=== PATIENT | female | born 1980 | race Caucasian/White ===

== ENCOUNTER 2020-02-14 11:30 | Inpatient (IN) | payer OTHER ==
--- NOTE | 2020-02-14 12:17 | BHS.RME ---
Substance Use & Tx History - Substance Use History Heroin Substance amount: 1 bundle Frequency of use: Daily Substance route: Inhalation (ex: sniffing or snorting) Date of Last Use: 02/13/20 Cocaine- Powder Substance amount: 1 gram Frequency of use: Daily Substance route: Inhalation (ex: sniffing or snorting) Date of Last Use: 02/13/20 Marijuana/Hashish Substance amount: 1 blunt Frequency of use: Daily Substance route: Smoking Date of Last Use: 02/13/20 Nicotine Substance amount: 5 ciggs Frequency of use: Daily Substance route: Smoking Date of Last Use: 02/14/20 Methadone Substance amount: street Frequency of use: Less than 3 times per week Substance route: Oral Date of Last Use: 02/13/20 - Last Treatment Date of last treatment: 2015 Treatment type: Substance Use Disorder (CHRISTIANNE) Where was last treatment: Detox COWS - Scale Resting Pulse: 0= [place] 80 or Below Sweatin=Flushed/Facial Moisture Restless Observation: 1= Difficult to Sit Still Pupil Size: 0= Normal to Room Light Bone or Joint Aches: 0= None Runny Nose/ Eye Tearin= Runny Nose/Eyes GI Upset > 30mins: 2= Nausea/Diarrhea Tremor Observation: 1= Tremor [place], Not Seen Yawning Observation: 1= 1-2x During Session Anxiety or Irritability: 2=Irritable/Anxious Goose Flesh Skin: 3=Piloerection COWS Score: 14
--- NOTE | 2020-02-14 12:28 | HP ---
COWS - Scale Resting Pulse: 0= [place] 80 or Below Sweatin=Flushed/Facial Moisture Restless Observation: 1= Difficult to Sit Still Pupil Size: 0= Normal to Room Light Bone or Joint Aches: 0= None Runny Nose/ Eye Tearin= Runny Nose/Eyes GI Upset > 30mins: 2= Nausea/Diarrhea Tremor Observation: 1= Tremor [place], Not Seen Yawning Observation: 1= 1-2x During Session Anxiety or Irritability: 2=Irritable/Anxious Goose Flesh Skin: 3=Piloerection COWS Score: 14 CIWA Score - Admission Criteria [facility]ASAS Guidelines: Admission for Medically Managed Detox: Requires at least one of the followin. CIWA greater than 12 2. Seizures within the past 24 hours 3. Delirium tremens within the past 24 hours 4. Hallucinations within the past 24 hours 5. Acute intervention needed for co occurring medical disorder 6. Acute intervention needed for co occurring psychiatric disorder 7. Severe withdrawal that cannot be handled at a lower level of care (continued vomiting, continued diarrhea, abnormal vital signs) requiring intravenous medication and/or fluids 8. Admitting History and Physical - Admission Chief Complaint: Heroin Detox History of Present Illness: CC: Heroin Detox HPI: Summer Rowland is a 39 year old woman with PMH of asthma and polysubstance abuse (heroin, methadone, cocaine, marijuana, nicotine) who presents for detox. She is a poor historian but states that she began taking prescription pain killers in 2015, was in detox at [facility] for 5 days in November 2015, but relapsed soon after. By 2017 she had progressed to heroin use. In 2018 she was admitted to detox for heroin use in [place], but relapsed in July 2019, and 'has been getting high every day since'. She was hospitalized September 2019 with asthma attack. - Substance Use History Heroin Substance amount: 1 bundle Frequency of use: Daily Substance route: Inhalation (ex: sniffing or snorting) Date of Last Use: 02/13/20 Cocaine- Powder Substance amount: 1 gram Frequency of use: Daily Substance route: Inhalation (ex: sniffing or snorting) Date of Last Use: 02/13/20 Marijuana/Hashish Substance amount: 1 blunt Frequency of use: Daily Substance route: Smoking Date of Last Use: 02/13/20 Nicotine Substance amount: 5 ciggs Frequency of use: Daily Substance route: Smoking Date of Last Use: 02/14/20 Methadone Substance amount: street Frequency of use: Less than 3 times per week Substance route: Oral Date of Last Use: 02/13/20 - Last Treatment Date of last treatment: 2015 Treatment type: Substance Use Disorder (CHRISTIANNE) Where was last treatment: Detox PMH: Asthma, anemia PSH: Gastric bypass 2013 Psych: Depression, anxiety Social: Lives in the [place] Legal: None History Source: Patient Limitations to Obtaining History: No Limitations - Past Medical History ...LMP: 12/07/15 - Smoking History Smoking history: Current every day smoker Have you smoked in the past 12 months: Yes Aproximately how many cigarettes per day: 5 - Alcohol/Substance Use Hx Alcohol Use: No Admission ROS S - HPI Chief Complaint: Heroin Detox Allergies/Adverse Reactions: Allergies Allergy/AdvReac Type Severity Reaction Status Date / Time No Known Allergies Allergy Verified 02/14/20 12:43 Exam Limitations: No Limitations - Ebola screening Have you traveled outside of the country in the last 21 days: No Have you had contact with anyone from an Ebola affected area: No Have you been sick,other than usual withdrawal symptoms: No Do you have a fever: No - Review of Systems Constitutional: No Symptoms Reported EENT: reports: Nose Congestion. denies: Eye Pain, Ear Pain Respiratory: denies: Cough, Shortness of Breath Cardiac: denies: Chest Pain GI: reports: Nausea. denies: Constipated, Diarrhea, Vomiting : reports: No Symptoms Reported Musculoskeletal: reports: No Symptoms Reported Integumentary: reports: No Symptoms Reported Neuro: denies: Headache Endocrine: reports: No Symptoms Reported Hematology: reports: Anemia. denies: Blood Clots Psychiatric: reports: Orientated x3 Patient History - Patient Medical History Hx Anemia: No Hx Asthma: Yes Hx Chronic Obstructive Pulmonary Disease (COPD): No Hx Cancer: No Hx Cardiac Disorders: No Hx Congestive Heart Failure: No Hx Hypertension: No Hx Hypercholesterolemia: No Hx Pacemaker: No HX Cerebrovascular Accident: No Hx Seizures: No Hx Dementia: No Hx Diabetes: No Hx Gastrointestinal Disorders: No Hx Liver Disease: No Hx Genitourinary Disorders: No Hx Sexually Transmitted Disorders: No Hx Renal Disease (ESRD): No Hx Thyroid Disease: No Hx Human Immunodeficiency Virus (HIV): No Hx Hepatitis C: No Hx Depression: No Hx Suicide Attempt: No Hx Bipolar Disorder: No Hx Schizophrenia: No - Patient Surgical History Past Surgical History: Yes Hx Abdominal Surgery: Yes (Gastric bypass 03/21/14) Anesthesia Reaction: No - PPD History Date: 12/13/15 - Reproductive History Last Menstrual Period: 12/07/15 - Smoking Cessation Smoking history: Current every day smoker Have you smoked in the past 12 months: Yes Aproximately how many cigarettes per day: 10 Hx Chewing Tobacco Use: No Initiated information on smoking cessation: Yes 'Breaking Loose' booklet given: 02/14/20 Admission Physical Exam [facility] - Physical General Appearance: Yes: Within Normal Limits HEENTM: Yes: Within Normal Limits, Hearing grossly Normal, Normocephalic, Normal Voice, ALIS Respiratory: Yes: Within Normal Limits, Lungs Clear, Wheezing. No: No Respiratory Distress, No Accessory Muscle Use Neck: Yes: Within Normal Limits Breast: Yes: Breast Exam Deferred Cardiology: Yes: Regular Rhythm, Regular Rate, S1, S2 Abdominal: Yes: Within Normal Limits, Normal Bowel Sounds, Non Tender, Flat, Soft Genitourinary: Yes: Within Normal Limits Back: Yes: Within Normal Limits, Normal Inspection Musculoskeletal: Yes: Within Normal Limits, full range of Motion, Gait Steady Extremities: Yes: Within Normal Limits, Other (ecchymoses on right knee from reported fall down the stairs last week) Neurological: Yes: Within Normal Limits, Fully Oriented, Alert, Motor Strength 5/5, Normal Mood/Affect Integumentary: Yes: Within Normal Limits, Normal Color, Dry, Warm - Diagnostic (1) Cocaine use Current Visit: Yes Status: Chronic (2) Nicotine dependence Current Visit: Yes Status: Acute Qualifiers: Nicotine product type: cigarettes (3) Asthma Current Visit: No Status: Chronic Qualifiers: Asthma severity: mild intermittent Asthma complication type: uncomplicated Qualified Code(s): J45.20 - Mild intermittent asthma, uncomplicated (4) Cannabis dependence, uncomplicated Current Visit: Yes Status: Acute (5) Opioid dependence with withdrawal Current Visit: Yes Status: Acute Cleared for Admission [facility] - Detox or Rehab [facility] Level of Care: Medically Managed Screened but not Admitted - Documentation of Visit Screened but not Admitted: No Inpatient Rehab Admission - Rehab Decision to Admit Inpatient rehab admission?: No
[2020-02-14 13:01] VITALS: BMI 25.9
[2020-02-14] MEDS ORDERED: MAGNESIUM CITRATE 300 ML BOTTLE PO PRN (13:19)
[2020-02-14] MEDS ORDERED: METHOCARBAMOL 500 MG TABLET PO PRN (13:19)
[2020-02-14] MEDS ORDERED: MENTHOL/PHENOL 1 EACH UD MM PRN (13:19)
[2020-02-14] MEDS ORDERED: BISMUTH SUBSALICYLATE 524 MG/30 ML UD PO PRN (13:19)
[2020-02-14] MEDS ORDERED: MAG HYDROX/AL HYDROX/SIMETH 30 ML UNIT-DOSE CUP PO PRN (13:19)
[2020-02-14] MEDS ORDERED: ACETAMINOPHEN 325 MG TABLET (FP) PO PRN (13:19)
[2020-02-14] MEDS ORDERED: NICOTINE POLACRILEX 2 MG GUM BUC PRN (13:19)
[2020-02-14] MEDS ORDERED: MAGNESIUM HYDROX 2400MG/30ML ORAL SUSPENSION 30 ML CUP PO PRN (13:19)
[2020-02-14] MEDS ORDERED: ALBUTEROL SO4 HFA INHALER IH PRN (13:22)
[2020-02-14] MEDS ORDERED: ONDANSETRON *ODT* 4 MG TABLET SL ONE (13:45)
[2020-02-14] MEDS ORDERED: hydrOXYzine PAMOATE 25 MG CAPSULE (FP) PO SCH (14:00)
[2020-02-14] MEDS ORDERED: METHADONE HCL 10 MG TABLET (FOR DETOX USE ONLY) PO ONE (14:00)
[2020-02-14] MEDS: NICOTINE 14 MG/24 HOURS TOPICAL PATCH TD SCH (14:02)
--- NOTE | 2020-02-14 14:34 | EKG ---
Test Reason : Blood Pressure : / mmHG Vent. Rate : 051 BPM Atrial Rate : 051 BPM P-R Int : 152 ms QRS Dur : 100 ms QT Int : 476 ms P-R-T Axes : 078 063 032 degrees QTc Int : 438 ms SINUS BRADYCARDIA OTHERWISE NORMAL ECG NO PREVIOUS ECGS AVAILABLE Confirmed by Rohan Espinoza MD ([id number]) on 02/14/2020 2:33:48 PM Referred By: Confirmed By:Rohan Espinoza MD
[2020-02-14 17:18] LABS: HEMATOCRIT 27.5 % (32.4-45.2); MCHC 28.9 g/dl (32.0-36.0); MEAN CELL VOLUME 59.1 fl (80-96); MEAN PLT VOLUME 8.5 fl (7.5-11.1); PLATELET COUNT 338 K/MM3 (134-434); RBC 4.66 M/mm3 (3.60-5.2); RDW 20.6 % (11.6-15.6)
[2020-02-14 17:19] LABS: MCH 17.1 pg (25.7-33.7)
[2020-02-14 17:27] LABS: ALBUMIN 3.4 g/dl (3.4-5.0); BILIRUBIN,TOTAL 0.3 mg/dL (0.2-1); BLOOD UREA NITROGEN 19.8 mg/dL (7-18); CALCIUM 8.6 mg/dL (8.5-10.1); CREATININE 0.8 mg/dL (0.55-1.3); POTASSIUM 4.7 mmol/L (3.5-5.1); TOT PROT 7.6 g/dl (6.4-8.2)
[2020-02-14] MEDS: MELATONIN 5 MG TABLETS PO SCH (22:04)
[2020-02-14] MEDS: THIAMINE HCL 100 MG TABLET (FP) PO SCH (22:04)
[2020-02-14] MEDS: cloNIDine HCL 0.1 MG TABLET PO PRN (22:04)
[2020-02-14] MEDS: IBUPROFEN 400 MG TABLET (FP) PO PRN (22:06)
[2020-02-15] MEDS ORDERED: METHADONE HCL 5 MG TABLET (FOR DETOX USE ONLY) ONE (08:54)
[2020-02-15] MEDS ORDERED: METHADONE HCL 10 MG TABLET (FOR DETOX USE ONLY) ONE (08:55)
[2020-02-15] MEDS ORDERED: METHADONE (DETOX) 20 MG, METHADONE (DETOX) 5 MG PO ONE (10:00)
[2020-02-15] MEDS: PRENATAL VITAMINS W/ FOLIC ACID TABLET (FP) PO SCH (10:20)
[2020-02-15] MEDS: NICOTINE 14 MG/24 HOURS TOPICAL PATCH TD SCH (10:20)
--- NOTE | 2020-02-15 10:32 | PN ---
BHS COWS - Scale Resting Pulse: 0= [place] 80 or Below Sweatin=Flushed/Facial Moisture Restless Observation: 1= Difficult to Sit Still Pupil Size: 0= Normal to Room Light Bone or Joint Aches: 2= Severe Diffuse Aches Runny Nose/ Eye Tearin= Runny Nose/Eyes GI Upset > 30mins: 0= None Tremor Observation of Outstretched Hands: 1= Tremor [place], Not Seen Yawning Observation: 1= 1-2x During Session Anxiety or Irritability: 2=Irritable/Anxious Goose Flesh Skin: 0=Smooth Skin COWS Score: 11 S Progress Note (SOAP) Subjective: sweats shakes restless body aches interrupted sleep agitation Objective: 02/15/20 10:31 Vital Signs Temperature 97.8 F 02/15/20 05:56 Pulse Rate 60 02/15/20 05:56 Respiratory Rate 18 02/15/20 05:56 Blood Pressure 123/65 02/15/20 05:56 O2 Sat by Pulse Oximetry (%) 96 02/15/20 05:56 Laboratory Tests 02/14/20 02/14/20 02/14/20 13:05 13:05 13:05 WBC RBC Hgb Hct MCV MCH MCHC RDW Plt Count MPV Sodium 138 Potassium 4.7 Chloride 104 Carbon Dioxide 27 Anion Gap 7 L BUN 19.8 H Creatinine 0.8 Est GFR (CKD-EPI)AfAm 107.64 Est GFR (CKD-EPI)NonAf 92.87 Random Glucose 72 L Calcium 8.6 Total Bilirubin 0.3 AST 18 ALT 15 Alkaline Phosphatase 80 Total Protein 7.6 Albumin 3.4 Syphilis Serology Non-reactive HIV Ag/Ab Combo Qual Negative 02/14/20 13:20 WBC 5.0 RBC 4.66 Hgb 8.0 L Hct 27.5 L D MCV 59.1 L MCH 17.1 L D MCHC 28.9 L RDW 20.6 H Plt Count 338 MPV 8.5 Sodium Potassium Chloride Carbon Dioxide Anion Gap BUN Creatinine Est GFR (CKD-EPI)AfAm Est GFR (CKD-EPI)NonAf Random Glucose Calcium Total Bilirubin AST ALT Alkaline Phosphatase Total Protein Albumin Syphilis Serology HIV Ag/Ab Combo Qual labs noted aaox3 ambulating no acute distress low H:H; H/O of gastric bypass iron supplement ordered Assessment: 02/15/20 10:33 withdrawals Plan: continue detox iron supplement ordered increase fluids valium 10mg prn x 3 days ordered
--- NOTE | 2020-02-15 10:51 | PN ---
Teaching Attending Note Name of Resident: Katelyn Choi ATTENDING PHYSICIAN STATEMENT I saw and evaluated the patient. I reviewed the resident's note and discussed the case with the resident. I agree with the resident's findings and plan as documented. SUBJECTIVE: OBJECTIVE: ASSESSMENT AND PLAN: Agree with resident's plan for detox.
--- NOTE | 2020-02-15 11:36 | CONSULT ---
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 Refer to addiction counselor's summary for further information Medical History: Significant for anemia, bronchial asthma and gastric bypass for obesity in February 2014. Smokes 5 cigarettes daily Psychiatric History: Denies history of previous psychiatric treatment. However, reports feeling depressed, anxious and sleeping poorly Physical/Sexual Abuse/Trauma History: Denies history of abuse as child or DV relationship as an adult Mental Status Exam - Mental Status Exam Alert and Oriented to: Time, Place, Person Cognitive Function: Fair Patient Appearance: Well Groomed Mood: Depressed, Anxious Affect: Appropriate Patient Behavior: Cooperative Speech Pattern: Clear Voice Loudness: Normal Thought Process: Intact, Goal Oriented Thought Disorder: Not Present Hallucinations: Denies Suicidal Ideation: Denies Homicidal Ideation: Denies Insight/Judgement: Poor Sleep: Poorly Appetite: Good Muscle strength/Tone: Normal Gait/Station: Normal Psychiatric Findings - Problem List ([place] 1, 2,3) (1) Substance induced mood disorder Current Visit: Yes Status: Acute (2) Substance-induced sleep disorder Current Visit: Yes Status: Acute (3) Opioid dependence with withdrawal Current Visit: Yes Status: Acute (4) Cocaine dependence Current Visit: Yes Status: Acute (5) Cannabis dependence Current Visit: Yes Status: Acute (6) Nicotine dependence Current Visit: Yes Status: Chronic Qualifiers: Nicotine product type: cigarettes (7) Asthma Current Visit: No Status: Chronic Qualifiers: Asthma severity: mild intermittent Asthma complication type: uncomplicated (8) Anemia Current Visit: Yes Status: Chronic (9) Gastric bypass status for obesity Current Visit: Yes Status: Resolved - Initial Treatment Plan Initial Treatment Plan: 1) Start Belsomra 10 mg po HS prn for insomnia. 2) Continue inpatient detoxification
[2020-02-15] MEDS: FERROUS SO4 325 MG TABLET (FP) PO SCH ×2 (14:40→17:57)
[2020-02-15] MEDS: IBUPROFEN 400 MG TABLET (FP) PO PRN (14:51)
[2020-02-15] MEDS: cloNIDine HCL 0.1 MG TABLET PO PRN ×2 (17:57→22:03)
[2020-02-15] MEDS: SUVOREXANT 10 MG TABLET PO PRN (22:02)
[2020-02-15] MEDS: THIAMINE HCL 100 MG TABLET (FP) PO SCH (22:03)
[2020-02-15] MEDS: ACETAMINOPHEN 325 MG TABLET (FP) PO PRN (22:03)
[2020-02-15] MEDS: MELATONIN 5 MG TABLETS PO SCH (23:41)
[2020-02-16] MEDS: diazePAM 5 MG TABLET PO PRN ×4 (05:56→22:52)
[2020-02-16] MEDS: IBUPROFEN 400 MG TABLET (FP) PO PRN ×3 (05:56→22:52)
[2020-02-16] MEDS: FERROUS SO4 325 MG TABLET (FP) PO SCH ×3 (07:26→18:33)
[2020-02-16] MEDS ORDERED: METHADONE HCL 10 MG TABLET (FOR DETOX USE ONLY) PO ONE (10:00)
[2020-02-16] MEDS: PRENATAL VITAMINS W/ FOLIC ACID TABLET (FP) PO SCH (10:19)
[2020-02-16] MEDS: NICOTINE 14 MG/24 HOURS TOPICAL PATCH TD SCH (10:19)
--- NOTE | 2020-02-16 12:31 | PN ---
BHS COWS - Scale Resting Pulse: 0= [place] 80 or Below Sweatin= Chills/Flushing Restless Observation: 1= Difficult to Sit Still Pupil Size: 0= Normal to Room Light Bone or Joint Aches: 1= Mild Discomfort Runny Nose/ Eye Tearin= Nasal Congestion GI Upset > 30mins: 1= Stomach Cramp Tremor Observation of Outstretched Hands: 1= Tremor [place], Not Seen Yawning Observation: 1= 1-2x During Session Anxiety or Irritability: 1=Feels Anxious/Irritable Goose Flesh Skin: 0=Smooth Skin COWS Score: 8 BHS Progress Note (SOAP) Subjective: sweats restless body aches interrupted sleep agitation Objective: 02/16/20 12:34 Vital Signs Temperature 98.2 F 02/16/20 08:43 Pulse Rate 60 02/16/20 08:43 Respiratory Rate 19 02/16/20 08:43 Blood Pressure 106/65 02/16/20 08:43 O2 Sat by Pulse Oximetry (%) 97 02/16/20 05:45 Laboratory Tests 02/14/20 02/14/20 02/14/20 13:05 13:05 13:05 WBC RBC Hgb Hct MCV MCH MCHC RDW Plt Count MPV Sodium Potassium Chloride Carbon Dioxide Anion Gap BUN Creatinine Est GFR (CKD-EPI)AfAm Est GFR (CKD-EPI)NonAf Random Glucose Calcium Total Bilirubin AST ALT Alkaline Phosphatase Total Protein Albumin Syphilis Serology Non-reactive COVID-19 (CHARO) Not detected HIV Ag/Ab Combo Qual Negative 02/14/20 02/14/20 13:05 13:20 WBC 5.0 RBC 4.66 Hgb 8.0 L Hct 27.5 L D MCV 59.1 L MCH 17.1 L D MCHC 28.9 L RDW 20.6 H Plt Count 338 MPV 8.5 Sodium 138 Potassium 4.7 Chloride 104 Carbon Dioxide 27 Anion Gap 7 L BUN 19.8 H Creatinine 0.8 Est GFR (CKD-EPI)AfAm 107.64 Est GFR (CKD-EPI)NonAf 92.87 Random Glucose 72 L Calcium 8.6 Total Bilirubin 0.3 AST 18 ALT 15 Alkaline Phosphatase 80 Total Protein 7.6 Albumin 3.4 Syphilis Serology COVID-19 (CHARO) HIV Ag/Ab Combo Qual labs noted aaox3 cbc repeats irons supplement ordered no acute distress Assessment: 02/16/20 12:34 withdrawals Plan: continue detox increase fluids robaxin 750mg prn ordered
[2020-02-16] MEDS: METHOCARBAMOL 750 MG TABLET PO PRN (15:28)
[2020-02-16] MEDS: ACETAMINOPHEN 325 MG TABLET (FP) PO PRN (19:39)
[2020-02-16] MEDS: THIAMINE HCL 100 MG TABLET (FP) PO SCH (22:52)
[2020-02-16] MEDS: SUVOREXANT 10 MG TABLET PO PRN (22:52)
[2020-02-16] MEDS: MELATONIN 5 MG TABLETS PO SCH (22:55)
[2020-02-17] MEDS: METHOCARBAMOL 750 MG TABLET PO PRN ×2 (01:12→22:44)
[2020-02-17] MEDS: hydrOXYzine PAMOATE 25 MG CAPSULE (FP) PO PRN ×2 (01:12→15:10)
[2020-02-17] MEDS: diazePAM 5 MG TABLET PO PRN ×2 (04:40→18:03)
[2020-02-17] MEDS ORDERED: METHADONE HCL 5 MG TABLET (FOR DETOX USE ONLY) ONE (09:00)
[2020-02-17] MEDS ORDERED: METHADONE HCL 10 MG TABLET (FOR DETOX USE ONLY) ONE (09:00)
[2020-02-17] MEDS ORDERED: METHADONE (DETOX) 10 MG, METHADONE (DETOX) 5 MG PO ONE (10:00)
[2020-02-17 10:21] LABS: BASO % 0.6 % (0-2.0); EOS % 2.8 % (0-4.5); HEMATOCRIT 28.9 % (32.4-45.2); HEMOGLOBIN 8.6 GM/dL (10.7-15.3); LYMPH % 45.1 % (8-40); MCHC 29.9 g/dl (32.0-36.0); MEAN CELL VOLUME 59.3 fl (80-96); MEAN PLT VOLUME 8.6 fl (7.5-11.1); MONO % 8.3 % (3.8-10.2); NEUT % 43.2 % (42.8-82.8); PLATELET COUNT 386 K/MM3 (134-434); RBC 4.87 M/mm3 (3.60-5.2); RDW 20.6 % (11.6-15.6); WHITE BLOOD COUNT 4.8 K/mm3 (4.0-10.0)
[2020-02-17 10:23] LABS: MCH 17.7 pg (25.7-33.7)
--- NOTE | 2020-02-17 10:40 | PN ---
BHS COWS - Scale Resting Pulse: 1= [place] 81-100 Sweatin= No chills or Flushing Restless Observation: 1= Difficult to Sit Still Pupil Size: 1= Pupils >than Normal Bone or Joint Aches: 1= Mild Discomfort Runny Nose/ Eye Tearin= Nasal Congestion GI Upset > 30mins: 1= Stomach Cramp Tremor Observation of Outstretched Hands: 1= Tremor [place], Not Seen Yawning Observation: 1= 1-2x During Session Anxiety or Irritability: 1=Feels Anxious/Irritable Goose Flesh Skin: 0=Smooth Skin COWS Score: 9 BHS Progress Note (SOAP) Subjective: pt admitted for heroin detox, with h/o polysubstance use O: Vital Signs - 24 hr 02/16/20 02/16/20 02/16/20 13:08 17:17 21:14 Temperature 98.1 F 97.9 F 97.3 F L Pulse Rate 65 85 57 L Respiratory 16 18 18 Rate Blood Pressure 106/67 116/65 116/67 O2 Sat by Pulse 95 96 Oximetry (%) 02/17/20 02/17/20 05:00 08:44 Temperature 98 F 98.6 F Pulse Rate 61 67 Respiratory 18 20 Rate Blood Pressure 113/80 109/58 L O2 Sat by Pulse 98 Oximetry (%) Laboratory Tests 02/14/20 02/14/20 02/14/20 13:05 13:05 13:05 WBC RBC Hgb Hct MCV MCH MCHC RDW Plt Count MPV Absolute Neuts (auto) Neutrophils % Lymphocytes % Monocytes % Eosinophils % Basophils % Nucleated RBC % Sodium Potassium Chloride Carbon Dioxide Anion Gap BUN Creatinine Est GFR (CKD-EPI)AfAm Est GFR (CKD-EPI)NonAf Random Glucose Calcium Total Bilirubin AST ALT Alkaline Phosphatase Total Protein Albumin Syphilis Serology Non-reactive COVID-19 (CHARO) Not detected HIV Ag/Ab Combo Qual Negative 02/14/20 02/14/20 02/17/20 13:05 13:20 07:50 WBC 5.0 4.8 RBC 4.66 4.87 Hgb 8.0 L 8.6 L Hct 27.5 L D 28.9 L MCV 59.1 L 59.3 L MCH 17.1 L D 17.7 L MCHC 28.9 L 29.9 L RDW 20.6 H 20.6 H Plt Count 338 386 MPV 8.5 8.6 Absolute Neuts (auto) 2.1 Neutrophils % 43.2 Lymphocytes % 45.1 H Monocytes % 8.3 Eosinophils % 2.8 Basophils % 0.6 Nucleated RBC % 0 Sodium 138 Potassium 4.7 Chloride 104 Carbon Dioxide 27 Anion Gap 7 L BUN 19.8 H Creatinine 0.8 Est GFR (CKD-EPI)AfAm 107.64 Est GFR (CKD-EPI)NonAf 92.87 Random Glucose 72 L Calcium 8.6 Total Bilirubin 0.3 AST 18 ALT 15 Alkaline Phosphatase 80 Total Protein 7.6 Albumin 3.4 Syphilis Serology COVID-19 (CHARO) HIV Ag/Ab Combo Qual with anemia, low MCV- a/p Continue opioid detox anemia- low MCV- could be a hemoglobinopathy, on top of nutrient deficiencies- h/o gastric bypass pt started on iron- anemia- needs to f/u with PCP
[2020-02-17] MEDS: PRENATAL VITAMINS W/ FOLIC ACID TABLET (FP) PO SCH (10:46)
[2020-02-17] MEDS: NICOTINE 14 MG/24 HOURS TOPICAL PATCH TD SCH (10:46)
[2020-02-17] MEDS: FERROUS SO4 325 MG TABLET (FP) PO SCH ×3 (10:46→18:03)
[2020-02-17 13:26] LABS: ANISOCYTOSIS 2+; MACROCYTOSIS 0; PLATELET ESTIMATE NORMAL; ROULEAU 1+
[2020-02-17] MEDS: cloNIDine HCL 0.1 MG TABLET PO PRN (15:10)
[2020-02-17] MEDS: IBUPROFEN 400 MG TABLET (FP) PO PRN (18:04)
[2020-02-17] MEDS: SUVOREXANT 10 MG TABLET PO PRN (22:43)
[2020-02-17] MEDS: THIAMINE HCL 100 MG TABLET (FP) PO SCH (22:44)
[2020-02-17] MEDS: MELATONIN 5 MG TABLETS PO SCH (22:45)
[2020-02-18] MEDS: diazePAM 5 MG TABLET PO PRN (05:40)
[2020-02-18] MEDS: ACETAMINOPHEN 325 MG TABLET (FP) PO PRN (05:40)
[2020-02-18] MEDS: hydrOXYzine PAMOATE 25 MG CAPSULE (FP) PO PRN ×2 (05:41→14:15)
[2020-02-18] MEDS: FERROUS SO4 325 MG TABLET (FP) PO SCH ×3 (07:50→17:38)
[2020-02-18] MEDS: NICOTINE 14 MG/24 HOURS TOPICAL PATCH TD SCH (09:50)
[2020-02-18] MEDS: PRENATAL VITAMINS W/ FOLIC ACID TABLET (FP) PO SCH (09:52)
[2020-02-18] MEDS ORDERED: METHADONE HCL 10 MG TABLET (FOR DETOX USE ONLY) PO ONE (10:00)
--- NOTE | 2020-02-18 14:11 | PN ---
S CIWA - CIWA Score Nausea/Vomitin-No Nausea/No Vomiting Muscle Tremors: 2 Anxiety: 2 Agitation: 1-Slight > Activity Paroxysmal Sweats: No Perspiration Orientation: 0-Oriented Tacttile Disturbances: 0-None Auditory Disturbances: 0-None Visual Disturbances: 0-None Headache: 0-None Present CIWA-Ar Total Score: 5 BHS Progress Note (SOAP) Subjective: Complaints of mild tremors, anxiety and agitation Objective: 02/18/20 14:11 Vital Signs 02/18/20 09:04 Temperature 97.8 F Pulse Rate 80 Respiratory 20 Rate Blood Pressure 131/76 O2 Sat by Pulse 99 Oximetry (%) Laboratory Last Values WBC 4.8 K/mm3 (4.0-10.0) 02/17/20 07:50 RBC 4.87 M/mm3 (3.60-5.2) 02/17/20 07:50 Hgb 8.6 GM/dL (10.7-15.3) L 02/17/20 07:50 Hct 28.9 % (32.4-45.2) L 02/17/20 07:50 MCV 59.3 fl (80-96) L 02/17/20 07:50 MCH 17.7 pg (25.7-33.7) L 02/17/20 07:50 MCHC 29.9 g/dl (32.0-36.0) L 02/17/20 07:50 RDW 20.6 % (11.6-15.6) H 02/17/20 07:50 Plt Count 386 K/MM3 (134-434) 02/17/20 07:50 MPV 8.6 fl (7.5-11.1) 02/17/20 07:50 Absolute Neuts (auto) 2.1 K/mm3 (1.5-8.0) 02/17/20 07:50 Neutrophils % 43.2 % (42.8-82.8) 02/17/20 07:50 Lymphocytes % 45.1 % (8-40) H 02/17/20 07:50 Monocytes % 8.3 % (3.8-10.2) 02/17/20 07:50 Eosinophils % 2.8 % (0-4.5) 02/17/20 07:50 Basophils % 0.6 % (0-2.0) 02/17/20 07:50 Nucleated RBC % 0 % (0-0) 02/17/20 07:50 Hypochromia 2+ 02/17/20 07:50 Platelet Estimate Normal 02/17/20 07:50 Poikilocytosis 0 02/17/20 07:50 Anisocytosis 2+ 02/17/20 07:50 Microcytosis 1+ 02/17/20 07:50 Macrocytosis 0 02/17/20 07:50 Rouleaux 1+ 02/17/20 07:50 Sodium 138 mmol/L (136-145) 02/14/20 13:05 Potassium 4.7 mmol/L (3.5-5.1) 02/14/20 13:05 Chloride 104 mmol/L (98-107) 02/14/20 13:05 Carbon Dioxide 27 mmol/L (21-32) 02/14/20 13:05 Anion Gap 7 MMOL/L (8-16) L 02/14/20 13:05 BUN 19.8 mg/dL (7-18) H 02/14/20 13:05 Creatinine 0.8 mg/dL (0.55-1.3) 02/14/20 13:05 Est GFR (CKD-EPI)AfAm 107.64 02/14/20 13:05 Est GFR (CKD-EPI)NonAf 92.87 02/14/20 13:05 Random Glucose 72 mg/dL (74-106) L 02/14/20 13:05 Calcium 8.6 mg/dL (8.5-10.1) 02/14/20 13:05 Total Bilirubin 0.3 mg/dL (0.2-1) 02/14/20 13:05 AST 18 U/L (15-37) 02/14/20 13:05 ALT 15 U/L (13-61) 02/14/20 13:05 Alkaline Phosphatase 80 U/L (45-117) 02/14/20 13:05 Total Protein 7.6 g/dl (6.4-8.2) 02/14/20 13:05 Albumin 3.4 g/dl (3.4-5.0) 02/14/20 13:05 Syphilis Serology Non-reactive (NONREACTIVE) 02/14/20 13:05 COVID-19 (CHARO) Not detected (Not Detected) 02/14/20 13:05 HIV Ag/Ab Combo Qual Negative (NEGATIVE) 02/14/20 13:05 Labs noted. Assessment: 02/18/20 14:12 Alert and oriented x 3, in no acute respiratory distress. Full ROM, ambulating in the unit without assistance. Mild withdrawal symptoms. For discharge AM Plan: Continue detox protocol. Discharge in AM.
[2020-02-18] MEDS: IBUPROFEN 400 MG TABLET (FP) PO PRN (17:36)
[2020-02-18] MEDS: cloNIDine HCL 0.1 MG TABLET PO PRN (17:36)
[2020-02-18] MEDS: THIAMINE HCL 100 MG TABLET (FP) PO SCH (21:57)
[2020-02-18] MEDS: SUVOREXANT 10 MG TABLET PO PRN (21:57)
[2020-02-18] MEDS: MELATONIN 5 MG TABLETS PO SCH (21:58)
[2020-02-19] MEDS: hydrOXYzine PAMOATE 25 MG CAPSULE (FP) PO PRN (01:29)
[2020-02-19] MEDS: IBUPROFEN 400 MG TABLET (FP) PO PRN (01:29)
[2020-02-19] MEDS ORDERED: METHADONE HCL 5 MG TABLET (FOR DETOX USE ONLY) PO ONE (06:00)
[2020-02-19 06:32] VITALS: BP 135/65; PULSE 67; TEMP 97.9
[2020-02-19] MEDS: FERROUS SO4 325 MG TABLET (FP) PO SCH (08:14)
--- NOTE | 2020-02-19 10:28 | DS ---
[facility] Detox Discharge Summary Admission Date: 02/14/20 Discharge Date: 02/19/20 - History Present History: Cannabis Dependence, Cocaine Dependence, Opioid Dependence Additional Comments: Patient was seen and examined at bedside. Alert and oriented x 3, in no acute respiratory distress. Skin warm to touch. Full ROM, ambulatory without assistance. Detox protocol completed, stable for discharge today. Pertinent Past History: History of asthma, anemia, gastric bypass, heroin, nicotine, cocaine and cannabis use disorder. - Physical Exam Results Vital Signs: Vital Signs Temperature 97.9 F 02/19/20 05:43 Pulse Rate 67 02/19/20 05:43 Respiratory Rate 16 02/19/20 05:43 Blood Pressure 135/65 02/19/20 05:43 O2 Sat by Pulse Oximetry (%) 98 02/19/20 05:43 Vital Signs 02/19/20 05:43 Temperature 97.9 F Pulse Rate 67 Respiratory 16 Rate Blood Pressure 135/65 O2 Sat by Pulse 98 Oximetry (%) Laboratory Last Values WBC 4.8 K/mm3 (4.0-10.0) 02/17/20 07:50 RBC 4.87 M/mm3 (3.60-5.2) 02/17/20 07:50 Hgb 8.6 GM/dL (10.7-15.3) L 02/17/20 07:50 Hct 28.9 % (32.4-45.2) L 02/17/20 07:50 MCV 59.3 fl (80-96) L 02/17/20 07:50 MCH 17.7 pg (25.7-33.7) L 02/17/20 07:50 MCHC 29.9 g/dl (32.0-36.0) L 02/17/20 07:50 RDW 20.6 % (11.6-15.6) H 02/17/20 07:50 Plt Count 386 K/MM3 (134-434) 02/17/20 07:50 MPV 8.6 fl (7.5-11.1) 02/17/20 07:50 Absolute Neuts (auto) 2.1 K/mm3 (1.5-8.0) 02/17/20 07:50 Neutrophils % 43.2 % (42.8-82.8) 02/17/20 07:50 Lymphocytes % 45.1 % (8-40) H 02/17/20 07:50 Monocytes % 8.3 % (3.8-10.2) 02/17/20 07:50 Eosinophils % 2.8 % (0-4.5) 02/17/20 07:50 Basophils % 0.6 % (0-2.0) 02/17/20 07:50 Nucleated RBC % 0 % (0-0) 02/17/20 07:50 Hypochromia 2+ 02/17/20 07:50 Platelet Estimate Normal 02/17/20 07:50 Poikilocytosis 0 02/17/20 07:50 Anisocytosis 2+ 02/17/20 07:50 Microcytosis 1+ 02/17/20 07:50 Macrocytosis 0 02/17/20 07:50 Rouleaux 1+ 02/17/20 07:50 Sodium 138 mmol/L (136-145) 02/14/20 13:05 Potassium 4.7 mmol/L (3.5-5.1) 02/14/20 13:05 Chloride 104 mmol/L (98-107) 02/14/20 13:05 Carbon Dioxide 27 mmol/L (21-32) 02/14/20 13:05 Anion Gap 7 MMOL/L (8-16) L 02/14/20 13:05 BUN 19.8 mg/dL (7-18) H 02/14/20 13:05 Creatinine 0.8 mg/dL (0.55-1.3) 02/14/20 13:05 Est GFR (CKD-EPI)AfAm 107.64 02/14/20 13:05 Est GFR (CKD-EPI)NonAf 92.87 02/14/20 13:05 Random Glucose 72 mg/dL (74-106) L 02/14/20 13:05 Calcium 8.6 mg/dL (8.5-10.1) 02/14/20 13:05 Total Bilirubin 0.3 mg/dL (0.2-1) 02/14/20 13:05 AST 18 U/L (15-37) 02/14/20 13:05 ALT 15 U/L (13-61) 02/14/20 13:05 Alkaline Phosphatase 80 U/L (45-117) 02/14/20 13:05 Total Protein 7.6 g/dl (6.4-8.2) 02/14/20 13:05 Albumin 3.4 g/dl (3.4-5.0) 02/14/20 13:05 Syphilis Serology Non-reactive (NONREACTIVE) 02/14/20 13:05 COVID-19 (CHARO) Not detected (Not Detected) 02/14/20 13:05 HIV Ag/Ab Combo Qual Negative (NEGATIVE) 02/14/20 13:05 Labs noted. Pertinent Admission Physical Exam Findings: Withdrawal symptoms - Treatment Hospital Course: Detox Protocol Followed, Detoxed Safely, Responded well, Discharged Condition Good - Medication Discharge Medications: Ambulatory Orders Albuterol Sulfate Inhaler - [Ventolin Hfa Inhaler -] 2 inh PO Q4H PRN 12/11/15 - Diagnosis (1) Cannabis dependence Current Visit: Yes Status: Chronic (2) Cocaine dependence Current Visit: Yes Status: Chronic (3) Nicotine dependence Current Visit: Yes Status: Chronic Qualifiers: Nicotine product type: cigarettes (4) Gastric bypass status for obesity Current Visit: Yes Status: Resolved (5) Asthma Current Visit: No Status: Chronic Qualifiers: Asthma severity: mild intermittent Asthma complication type: uncomplicated (6) Opioid dependence with withdrawal Current Visit: Yes Status: Acute - AMA Did Patient Leave Against Medical Advice: No
== END 2020-02-19 09:11 | disposition home or self-care (01) | DRG 773 ==
LOC: YASAS 11:30 → Y6N 12:37
PROVIDERS: ADMIT Allergy & Immunology; ATTEND Allergy & Immunology
PROC: HZ2ZZZZ Detoxification Services for Substance Abuse Treatment (ICD-10-PCS; principal; 2020-02-14)
DX: F11.23 Opioid dependence with withdrawal (principal); F14.20 Cocaine dependence, uncomplicated; F12.20 Cannabis dependence, uncomplicated; F17.210 Nicotine dependence, cigarettes, uncomplicated; F19.282 Other psychoactive substance dependence with psychoactive substance-induced sleep disorder; F19.24 Other psychoactive substance dependence with psychoactive substance-induced mood disorder; D64.9 Anemia, unspecified; J45.20 Mild intermittent asthma, uncomplicated; Z98.84 Bariatric surgery status
CPT/HCPCS: 36415; 80053; 85025; 85027; 86780; 87389; 93005; 93010; J0735; U0003

== ENCOUNTER 2020-12-03 17:11 | Inpatient (IN) | payer OTHER ==
[2020-12-03 19:33] VITALS: BMI 29.0
[2020-12-03] MEDS ORDERED: BISMUTH SUBSALICYLATE 524 MG/30 ML PO PRN (20:25)
[2020-12-03] MEDS ORDERED: DICYCLOMINE HCL 10 MG CAPSULE PO PRN (20:25)
[2020-12-03] MEDS ORDERED: P-EPHED 60MG/TRIPROLIDI 2.5MG TABLET PO PRN (20:25)
[2020-12-03] MEDS ORDERED: MAG HYDROX/AL HYDROX/SIMETH 30 ML UNIT-DOSE CUP PO PRN (20:25)
[2020-12-03] MEDS ORDERED: NICOTINE POLACRILEX 2 MG GUM BUC PRN (20:25)
[2020-12-03] MEDS ORDERED: MAGNESIUM HYDROX 2400MG/30ML ORAL SUSPENSION 30 ML CUP PO PRN (20:25)
[2020-12-03] MEDS ORDERED: ONDANSETRON *ODT* 4 MG TABLET SL PRN (20:25)
[2020-12-03] MEDS ORDERED: ACETAMINOPHEN 325 MG TABLET (FP) PO PRN ×2 (20:25)
[2020-12-03] MEDS ORDERED: NALOXONE (NARCAN) HCL 4 MG/0.1 ML SPRAY NS PRN (20:25)
[2020-12-03] MEDS ORDERED: MENTHOL/PHENOL 1 EACH UD MM PRN (20:25)
[2020-12-03] MEDS ORDERED: guaiFENesin 200 MG/10 ML 10 ML UNIT-DOSE CUPS PO PRN (20:25)
[2020-12-03] MEDS ORDERED: MAGNESIUM CITRATE 300 ML BOTTLE PO PRN (20:25)
[2020-12-03] MEDS ORDERED: NALOXONE HCL 0.4 MG/ML VIAL IM PRN (20:25)
[2020-12-03] MEDS ORDERED: METHADONE HCL 10 MG TABLET (FOR DETOX USE ONLY) PO ONE ×2 (21:00→23:45)
[2020-12-03] MEDS ORDERED: ALBUTEROL SO4 0.083% IH SOL 2.5 MG/3 ML VIAL.NEB. NEB ONE (21:11)
[2020-12-03] MEDS: THIAMINE HCL 100 MG TABLET (FP) PO SCH (23:48)
[2020-12-03] MEDS: MELATONIN 5 MG TABLETS PO SCH (23:49)
[2020-12-03] MEDS: diazePAM 5 MG TABLET PO SCH (23:50)
[2020-12-04] MEDS: diazePAM 5 MG TABLET PO SCH ×4 (06:00→22:56)
[2020-12-04] MEDS: METHOCARBAMOL 500 MG TABLET PO PRN ×2 (06:00→20:30)
[2020-12-04] MEDS ORDERED: METHADONE HCL 5 MG TABLET (FOR DETOX USE ONLY) ONE (09:54)
[2020-12-04] MEDS ORDERED: METHADONE HCL 10 MG TABLET (FOR DETOX USE ONLY) ONE (09:54)
[2020-12-04] MEDS ORDERED: METHADONE (DETOX) 20 MG, METHADONE (DETOX) 5 MG PO ONE (10:00)
[2020-12-04] MEDS: PRENATAL VITAMINS W/ FOLIC ACID TABLET (FP) PO SCH (10:18)
[2020-12-04] MEDS: NICOTINE 21 MG/24 HOURS TOPICAL PATCH TD SCH (10:18)
[2020-12-04 11:30] LABS: HEMATOCRIT 25.9 % (32.4-45.2); HEMOGLOBIN 7.7 GM/dL (10.7-15.3); MCHC 29.7 g/dl (32.0-36.0); MEAN CELL VOLUME 59.6 fl (80-96); MEAN PLT VOLUME 8.3 fl (7.5-11.1); PLATELET COUNT 327 K/MM3 (134-434); RBC 4.34 M/mm3 (3.60-5.2); RDW 21.2 % (11.6-15.6); WHITE BLOOD COUNT 5.1 K/mm3 (4.0-10.0)
[2020-12-04 11:31] LABS: CALCIUM 8.7 mg/dL (8.5-10.1)
[2020-12-04 11:33] LABS: ALBUMIN 2.7 g/dl (3.4-5.0); BLOOD UREA NITROGEN 9.6 mg/dL (7-18)
[2020-12-04 11:35] LABS: CREATININE 0.6 mg/dL (0.55-1.3); MCH 17.7 pg (25.7-33.7)
[2020-12-04 11:36] LABS: BILIRUBIN,TOTAL 0.4 mg/dL (0.2-1); TOT PROT 6.1 g/dl (6.4-8.2)
[2020-12-04] MEDS ORDERED: FERROUS SO4 325 MG TABLET (FP) PO ONE (12:31)
[2020-12-04] MEDS: cloNIDine HCL 0.1 MG TABLET PO PRN (17:18)
[2020-12-04] MEDS: FERROUS SO4 325 MG TABLET (FP) PO SCH (17:18)
[2020-12-04] MEDS: diazePAM 5 MG TABLET PO PRN (20:30)
[2020-12-04] MEDS: MELATONIN 5 MG TABLETS PO SCH (22:56)
[2020-12-04] MEDS: THIAMINE HCL 100 MG TABLET (FP) PO SCH (22:56)
[2020-12-04] MEDS: IBUPROFEN 400 MG TABLET (FP) PO PRN (22:58)
[2020-12-05] MEDS: diazePAM 5 MG TABLET PO SCH ×3 (06:11→22:09)
[2020-12-05] MEDS: IBUPROFEN 400 MG TABLET (FP) PO PRN ×2 (06:12→13:22)
[2020-12-05] MEDS: METHOCARBAMOL 500 MG TABLET PO PRN ×2 (06:12→17:24)
[2020-12-05] MEDS: FERROUS SO4 325 MG TABLET (FP) PO SCH ×3 (08:05→17:22)
[2020-12-05] MEDS ORDERED: METHADONE HCL 10 MG TABLET (FOR DETOX USE ONLY) PO ONE (10:00)
[2020-12-05] MEDS: NICOTINE 21 MG/24 HOURS TOPICAL PATCH TD SCH (10:13)
[2020-12-05] MEDS: PRENATAL VITAMINS W/ FOLIC ACID TABLET (FP) PO SCH (10:13)
[2020-12-05] MEDS: ALBUTEROL SO4 HFA INHALER IH PRN (17:21)
[2020-12-05] MEDS: cloNIDine HCL 0.1 MG TABLET PO PRN (17:24)
[2020-12-05] MEDS: diazePAM 5 MG TABLET PO PRN (17:24)
[2020-12-05] MEDS: THIAMINE HCL 100 MG TABLET (FP) PO SCH (22:08)
[2020-12-05] MEDS: MELATONIN 5 MG TABLETS PO SCH (22:08)
[2020-12-06] MEDS: IBUPROFEN 400 MG TABLET (FP) PO PRN ×2 (00:50→20:38)
[2020-12-06] MEDS: METHOCARBAMOL 500 MG TABLET PO PRN ×4 (00:50→22:01)
[2020-12-06] MEDS: diazePAM 5 MG TABLET PO PRN (00:51)
[2020-12-06] MEDS: diazePAM 5 MG TABLET PO SCH ×2 (06:01→17:40)
[2020-12-06] MEDS: FERROUS SO4 325 MG TABLET (FP) PO SCH ×3 (07:46→17:39)
[2020-12-06] MEDS ORDERED: METHADONE HCL 5 MG TABLET (FOR DETOX USE ONLY) ONE (09:42)
[2020-12-06] MEDS ORDERED: METHADONE HCL 10 MG TABLET (FOR DETOX USE ONLY) ONE (09:42)
[2020-12-06 09:58] LABS: HEMATOCRIT 29.3 % (32.4-45.2); HEMOGLOBIN 8.9 GM/dL (10.7-15.3); MCHC 30.3 g/dl (32.0-36.0); MEAN CELL VOLUME 58.4 fl (80-96); MEAN PLT VOLUME 8.1 fl (7.5-11.1); PLATELET COUNT 366 K/MM3 (134-434); RBC 5.01 M/mm3 (3.60-5.2); RDW 21.4 % (11.6-15.6); WHITE BLOOD COUNT 5.3 K/mm3 (4.0-10.0)
[2020-12-06 10:00] LABS: MCH 17.7 pg (25.7-33.7)
[2020-12-06] MEDS ORDERED: METHADONE (DETOX) 10 MG, METHADONE (DETOX) 5 MG PO ONE (10:00)
[2020-12-06] MEDS: NICOTINE 21 MG/24 HOURS TOPICAL PATCH TD SCH (10:12)
[2020-12-06] MEDS: PRENATAL VITAMINS W/ FOLIC ACID TABLET (FP) PO SCH (10:12)
[2020-12-06] MEDS: ALBUTEROL SO4 HFA INHALER IH PRN (17:38)
[2020-12-06] MEDS: THIAMINE HCL 100 MG TABLET (FP) PO SCH (22:01)
[2020-12-06] MEDS: MELATONIN 5 MG TABLETS PO SCH (22:01)
[2020-12-07] MEDS ORDERED: diazePAM 5 MG TABLET PO ONE (06:00)
[2020-12-07] MEDS: IBUPROFEN 400 MG TABLET (FP) PO PRN (06:10)
[2020-12-07] MEDS: METHOCARBAMOL 500 MG TABLET PO PRN (06:10)
[2020-12-07] MEDS: FERROUS SO4 325 MG TABLET (FP) PO SCH (07:06)
[2020-12-07 09:05] VITALS: BP 98/58; PULSE 79; TEMP 96.4
[2020-12-07] MEDS: NICOTINE 21 MG/24 HOURS TOPICAL PATCH TD SCH (09:29)
[2020-12-07] MEDS: PRENATAL VITAMINS W/ FOLIC ACID TABLET (FP) PO SCH (09:29)
[2020-12-07] MEDS ORDERED: METHADONE HCL 10 MG TABLET (FOR DETOX USE ONLY) PO ONE (10:00)
[2020-12-08] MEDS ORDERED: METHADONE HCL 5 MG TABLET (FOR DETOX USE ONLY) PO ONE (06:00)
== END 2020-12-07 09:34 | disposition other institution (70) | DRG 773 ==
LOC: YASAS 17:11 → Y3N 20:38
PROVIDERS: ADMIT Allergy & Immunology; ATTEND Allergy & Immunology
PROC: HZ2ZZZZ Detoxification Services for Substance Abuse Treatment (ICD-10-PCS; principal; 2020-12-03)
DX: F11.23 Opioid dependence with withdrawal (principal); F10.20 Alcohol dependence, uncomplicated; F14.20 Cocaine dependence, uncomplicated; F12.20 Cannabis dependence, uncomplicated; F17.210 Nicotine dependence, cigarettes, uncomplicated; F19.280 Other psychoactive substance dependence with psychoactive substance-induced anxiety disorder; F19.24 Other psychoactive substance dependence with psychoactive substance-induced mood disorder; D64.9 Anemia, unspecified; J45.909 Unspecified asthma, uncomplicated; Z98.84 Bariatric surgery status
CPT/HCPCS: 36415; 80053; 81025; 85027; 86780; J0735; Q0162

== ENCOUNTER 2021-07-01 10:26 | Inpatient (IN) | payer OTHER ==
[2021-07-01] MEDS ORDERED: ACETAMINOPHEN 325 MG TABLET (FP) PO PRN (10:55)
[2021-07-01] MEDS ORDERED: MAG HYDROX/AL HYDROX/SIMETH 30 ML UNIT-DOSE CUP PO PRN (10:55)
[2021-07-01] MEDS ORDERED: NICOTINE 10 MG CARTRIDGE (INHALER) IH PRN (10:55)
[2021-07-01] MEDS ORDERED: MAGNESIUM HYDROX 2400MG/30ML ORAL SUSPENSION 30 ML CUP PO PRN (10:55)
[2021-07-01] MEDS ORDERED: MAGNESIUM CITRATE 300 ML BOTTLE PO PRN (10:55)
[2021-07-01] MEDS ORDERED: BISMUTH SUBSALICYLATE 524 MG/30 ML PO PRN (10:55)
[2021-07-01] MEDS ORDERED: chlordiazePOXIDE HCL 25 MG CAPSULE PO PRN (10:55)
[2021-07-01] MEDS ORDERED: ONDANSETRON *ODT* 4 MG TABLET SL PRN (10:55)
[2021-07-01 11:30] VITALS: BMI 33.9
[2021-07-01] MEDS ORDERED: ALBUTEROL SO4 HFA INHALER IH ONE (12:52)
[2021-07-01] MEDS ORDERED: ACETAMINOPHEN 325 MG TABLET (FP) ONE ×2 (12:55→12:56)
[2021-07-01] MEDS ORDERED: chlordiazePOXIDE HCL 25 MG CAPSULE ONE (12:55)
[2021-07-01] MEDS: ACETAMINOPHEN 325 MG TABLET (FP) PO PRN ×2 (13:00→23:25)
[2021-07-01] MEDS: ALBUTEROL SO4 HFA INHALER IH PRN (13:01)
[2021-07-01] MEDS: NICOTINE 14 MG/24 HOURS TOPICAL PATCH TD SCH (15:45)
[2021-07-01] MEDS: hydrOXYzine PAMOATE 25 MG CAPSULE (FP) PO SCH ×3 (15:45→23:26)
[2021-07-01] MEDS: PRENATAL VITAMINS W/ FOLIC ACID TABLET (FP) PO SCH (15:47)
[2021-07-01] MEDS: chlordiazePOXIDE HCL 25 MG CAPSULE PO SCH ×3 (15:54→23:25)
[2021-07-01] MEDS: IBUPROFEN 400 MG TABLET (FP) PO PRN (18:15)
[2021-07-01] MEDS: METHOCARBAMOL 500 MG TABLET PO PRN (18:16)
[2021-07-01] MEDS: AMOXICILLIN 500 MG CAPSULE (FP) PO SCH (23:24)
[2021-07-01] MEDS: MELATONIN 5 MG TABLETS PO SCH (23:25)
[2021-07-01] MEDS: THIAMINE HCL 100 MG TABLET (FP) PO SCH (23:25)
[2021-07-02] MEDS: ALBUTEROL SO4 HFA INHALER IH PRN ×5 (00:11→22:47)
[2021-07-02] MEDS: chlordiazePOXIDE HCL 25 MG CAPSULE PO SCH ×4 (06:51→22:48)
[2021-07-02] MEDS: hydrOXYzine PAMOATE 25 MG CAPSULE (FP) PO SCH ×5 (06:52→22:48)
[2021-07-02] MEDS: METHOCARBAMOL 500 MG TABLET PO PRN ×2 (06:53→23:03)
[2021-07-02] MEDS ORDERED: guaiFENesin/D-METHORPHAN HB 10 ML UNIT-DOSE CUPS PO PRN (09:30)
[2021-07-02] MEDS: AMOXICILLIN 500 MG CAPSULE (FP) PO SCH ×2 (10:59→22:48)
[2021-07-02] MEDS: PRENATAL VITAMINS W/ FOLIC ACID TABLET (FP) PO SCH (10:59)
[2021-07-02] MEDS: NICOTINE 14 MG/24 HOURS TOPICAL PATCH TD SCH (11:05)
[2021-07-02] MEDS ORDERED: FLU VACC QS2021-22(6MOS UP)/PF 60 MCG/0.5 ML SYRINGE IM ONE (12:00)
[2021-07-02] MEDS: guaiFENesin 200 MG/10 ML 10 ML UNIT-DOSE CUPS PO PRN ×3 (12:02→22:50)
[2021-07-02 12:24] LABS: CHLORIDE 100 mmol/L (98-107); SODIUM 137 mmol/L (136-145)
[2021-07-02 12:30] LABS: HEMATOCRIT 27.2 % (32.4-45.2); HEMOGLOBIN 7.9 GM/dL (10.7-15.3); MCH 22.6 pg (25.7-33.7); MCHC 29.1 g/dl (32.0-36.0); MEAN CELL VOLUME 77.4 fl (80-96); MEAN PLT VOLUME 7.1 fl (7.5-11.1); PLATELET COUNT 169 10^3/uL (134-434); RBC 3.52 M/mm3 (3.60-5.2); RDW 27.7 % (11.6-15.6); WHITE BLOOD COUNT 3.8 K/mm3 (4.0-10.0)
[2021-07-02 12:39] LABS: CALCIUM 8.1 mg/dL (8.5-10.1)
[2021-07-02 12:40] LABS: ALBUMIN 2.4 g/dl (3.4-5.0); BLOOD UREA NITROGEN 4.1 mg/dL (7-18); CO2 23 mmol/L (21-32); GLUCOSE,RANDOM 102 mg/dL (74-106)
[2021-07-02 12:43] LABS: CREATININE 0.6 mg/dL (0.55-1.3); SGOT/AST 129 U/L (15-37); SGPT/ALT 53 U/L (13-61)
[2021-07-02 12:44] LABS: TOT PROT 7.7 g/dl (6.4-8.2)
[2021-07-02 12:45] LABS: BILIRUBIN,TOTAL 0.3 mg/dL (0.2-1)
[2021-07-02 12:46] LABS: ALK PHOS 131 U/L (45-117)
[2021-07-02 12:48] LABS: ANION GAP 13 MMOL/L (8-16)
[2021-07-02] MEDS ORDERED: POTASSIUM CHLORIDE TABS 20 MEQ TABLET.ER (FP) PO ONE ×2 (13:32→18:30)
[2021-07-02] MEDS: ACETAMINOPHEN 325 MG TABLET (FP) PO PRN (14:46)
[2021-07-02] MEDS: MELATONIN 5 MG TABLETS PO SCH (22:48)
[2021-07-02] MEDS: THIAMINE HCL 100 MG TABLET (FP) PO SCH (22:48)
[2021-07-03] MEDS: guaiFENesin 200 MG/10 ML 10 ML UNIT-DOSE CUPS PO PRN ×2 (04:07→21:40)
[2021-07-03] MEDS: ALBUTEROL SO4 HFA INHALER IH PRN ×2 (04:09→21:40)
[2021-07-03] MEDS: chlordiazePOXIDE HCL 25 MG CAPSULE PO SCH ×2 (06:37→10:57)
[2021-07-03] MEDS: hydrOXYzine PAMOATE 25 MG CAPSULE (FP) PO SCH ×5 (06:38→22:11)
[2021-07-03] MEDS: AMOXICILLIN 500 MG CAPSULE (FP) PO SCH ×2 (10:56→22:10)
[2021-07-03] MEDS: PRENATAL VITAMINS W/ FOLIC ACID TABLET (FP) PO SCH (10:57)
[2021-07-03] MEDS: NICOTINE 14 MG/24 HOURS TOPICAL PATCH TD SCH (10:57)
[2021-07-03] MEDS ORDERED: LORazepam 1 MG TABLET PO PRN (12:05)
[2021-07-03] MEDS: LORazepam 1 MG TABLET PO SCH ×2 (18:03→22:11)
[2021-07-03] MEDS: MENTHOL/PHENOL 1 EACH UD MM PRN (21:40)
[2021-07-03] MEDS: THIAMINE HCL 100 MG TABLET (FP) PO SCH (22:11)
[2021-07-03] MEDS: MELATONIN 5 MG TABLETS PO SCH (22:12)
[2021-07-04] MEDS ORDERED: LORazepam 0.5 MG TABLET PO PRN
[2021-07-04] MEDS ORDERED: chlordiazePOXIDE HCL 10 MG CAPSULE PO PRN
[2021-07-04] MEDS ORDERED: chlordiazePOXIDE HCL 10 MG CAPSULE PO SCH (05:00)
[2021-07-04] MEDS: ALBUTEROL SO4 HFA INHALER IH PRN ×2 (05:34→18:14)
[2021-07-04] MEDS: guaiFENesin 200 MG/10 ML 10 ML UNIT-DOSE CUPS PO PRN ×2 (05:34→23:40)
[2021-07-04] MEDS: LORazepam 0.5 MG TABLET PO SCH ×4 (06:26→23:33)
[2021-07-04] MEDS: MENTHOL/PHENOL 1 EACH UD MM PRN (06:27)
[2021-07-04] MEDS: hydrOXYzine PAMOATE 25 MG CAPSULE (FP) PO SCH ×5 (06:27→23:33)
[2021-07-04] MEDS: NICOTINE 14 MG/24 HOURS TOPICAL PATCH TD SCH (10:46)
[2021-07-04] MEDS: PRENATAL VITAMINS W/ FOLIC ACID TABLET (FP) PO SCH (11:42)
[2021-07-04] MEDS: AMOXICILLIN 500 MG CAPSULE (FP) PO SCH ×2 (11:42→23:33)
[2021-07-04] MEDS: IBUPROFEN 400 MG TABLET (FP) PO PRN (18:13)
[2021-07-04] MEDS: METHOCARBAMOL 500 MG TABLET PO PRN (23:33)
[2021-07-04] MEDS: MELATONIN 5 MG TABLETS PO SCH (23:33)
[2021-07-04] MEDS: THIAMINE HCL 100 MG TABLET (FP) PO SCH (23:33)
[2021-07-05] MEDS: ALBUTEROL SO4 HFA INHALER IH PRN ×3 (03:10→23:26)
[2021-07-05] MEDS ORDERED: LORazepam 0.5 MG TABLET PO ONE (05:00)
[2021-07-05] MEDS ORDERED: chlordiazePOXIDE HCL 10 MG CAPSULE PO SCH (05:00)
[2021-07-05] MEDS: hydrOXYzine PAMOATE 25 MG CAPSULE (FP) PO SCH ×5 (06:21→23:25)
[2021-07-05] MEDS: guaiFENesin 200 MG/10 ML 10 ML UNIT-DOSE CUPS PO PRN ×2 (08:47→18:16)
[2021-07-05] MEDS: AMOXICILLIN 500 MG CAPSULE (FP) PO SCH ×2 (11:33→23:25)
[2021-07-05] MEDS: PRENATAL VITAMINS W/ FOLIC ACID TABLET (FP) PO SCH (11:33)
[2021-07-05] MEDS: NICOTINE 14 MG/24 HOURS TOPICAL PATCH TD SCH (11:34)
[2021-07-05] MEDS: predniSONE 20 MG TABLET (UD) PO SCH (11:36)
[2021-07-05] MEDS: ACETAMINOPHEN 325 MG TABLET (FP) PO PRN (18:14)
[2021-07-05] MEDS: THIAMINE HCL 100 MG TABLET (FP) PO SCH (23:25)
[2021-07-05] MEDS: MELATONIN 5 MG TABLETS PO SCH (23:25)
[2021-07-05] MEDS: IBUPROFEN 400 MG TABLET (FP) PO PRN (23:26)
[2021-07-06] MEDS ORDERED: chlordiazePOXIDE HCL 10 MG CAPSULE PO ONE (05:00)
[2021-07-06] MEDS: ALBUTEROL SO4 HFA INHALER IH PRN ×2 (06:27→20:19)
[2021-07-06] MEDS: hydrOXYzine PAMOATE 25 MG CAPSULE (FP) PO SCH ×5 (06:27→22:20)
[2021-07-06] MEDS ORDERED: ALBUTEROL SO4 0.083% IH SOL 2.5 MG/3 ML VIAL.NEB. NEB ONE (06:47)
[2021-07-06] MEDS ORDERED: ALBUTEROL SO4 2.5/IPRATROPIUM 0.5 INH SOL 3 ML VIAL.NEB. NEB ONE ×2 (06:54→07:25)
[2021-07-06] MEDS: PRENATAL VITAMINS W/ FOLIC ACID TABLET (FP) PO SCH (11:30)
[2021-07-06] MEDS: AMOXICILLIN 500 MG CAPSULE (FP) PO SCH ×2 (11:30→22:19)
[2021-07-06] MEDS: predniSONE 20 MG TABLET (UD) PO SCH (11:30)
[2021-07-06] MEDS: NICOTINE 14 MG/24 HOURS TOPICAL PATCH TD SCH (12:45)
[2021-07-06] MEDS: guaiFENesin 200 MG/10 ML 10 ML UNIT-DOSE CUPS PO PRN (18:03)
[2021-07-06] MEDS: ACETAMINOPHEN 325 MG TABLET (FP) PO PRN (18:04)
[2021-07-06] MEDS: MELATONIN 5 MG TABLETS PO SCH (22:19)
[2021-07-06] MEDS: THIAMINE HCL 100 MG TABLET (FP) PO SCH (22:20)
[2021-07-07] MEDS: ALBUTEROL SO4 HFA INHALER IH PRN ×2 (05:48→13:57)
[2021-07-07] MEDS: hydrOXYzine PAMOATE 25 MG CAPSULE (FP) PO SCH ×2 (05:48→10:45)
[2021-07-07] MEDS: guaiFENesin 200 MG/10 ML 10 ML UNIT-DOSE CUPS PO PRN (05:48)
[2021-07-07] MEDS: predniSONE 20 MG TABLET (UD) PO SCH (10:44)
[2021-07-07] MEDS: AMOXICILLIN 500 MG CAPSULE (FP) PO SCH (10:44)
[2021-07-07] MEDS: PRENATAL VITAMINS W/ FOLIC ACID TABLET (FP) PO SCH (10:44)
[2021-07-07] MEDS: NICOTINE 14 MG/24 HOURS TOPICAL PATCH TD SCH (10:45)
[2021-07-07 19:23] VITALS: BP 144/83; PULSE 105; TEMP 97.3
== END 2021-07-07 18:20 | disposition home or self-care (01) | DRG 774 ==
LOC: YASAS 10:26 → Y3N 12:42
PROVIDERS: ADMIT Allergy & Immunology; ATTEND Allergy & Immunology
PROC: HZ2ZZZZ Detoxification Services for Substance Abuse Treatment (ICD-10-PCS; principal; 2021-07-01)
DX: F10.230 Alcohol dependence with withdrawal, uncomplicated (principal); F14.20 Cocaine dependence, uncomplicated; F12.20 Cannabis dependence, uncomplicated; F17.210 Nicotine dependence, cigarettes, uncomplicated; F19.282 Other psychoactive substance dependence with psychoactive substance-induced sleep disorder; F19.24 Other psychoactive substance dependence with psychoactive substance-induced mood disorder; U07.1 COVID-19; D64.9 Anemia, unspecified; E87.6 Hypokalemia; J45.909 Unspecified asthma, uncomplicated; E66.9 Obesity, unspecified; Z68.33 Body mass index [BMI] 33.0-33.9, adult
CPT/HCPCS: 36415; 80053; 81025; 84132; 85027; 86780; 94640; C9803; Q0162; U0003; U0005

== ENCOUNTER 2021-07-04 11:15 | Emergency (ER) | payer OTHER ==
[2021-07-04 11:51] VITALS: TEMP 98.2; BMI 33.9
[2021-07-04] MEDS ORDERED: DEXAMETHASONE SOD PHOSPHATE 10 MG/1 ML VIAL IVPUSH ONE (12:04)
[2021-07-04] MEDS ORDERED: ACETAMINOPHEN 1000 MG/100 ML BAG IVPB ONE (12:06)
[2021-07-04] MEDS ORDERED: DEXAMETHASONE SOD PHOSPHATE 10 MG/1 ML VIAL ONE (12:35)
[2021-07-04] MEDS ORDERED: ACETAMINOPHEN INJECTION 100 ML IVPB ONE (12:35)
[2021-07-04 13:06] LABS: BASO % 0.4 % (0-2.0); EOS % 0.1 % (0-4.5); HEMATOCRIT 25.5 % (32.4-45.2); HEMOGLOBIN 7.8 GM/dL (10.7-15.3); LYMPH % 26.4 % (8-40); MCH 23.7 pg (25.7-33.7); MCHC 30.7 g/dl (32.0-36.0); MEAN CELL VOLUME 77.2 fl (80-96); MEAN PLT VOLUME 6.2 fl (7.5-11.1); MONO % 10.8 % (3.8-10.2); NEUT % 62.3 % (42.8-82.8); PLATELET COUNT 284 10^3/uL (134-434); RDW 32.7 % (11.6-15.6); WHITE BLOOD COUNT 4.7 K/mm3 (4.0-10.0)
[2021-07-04 13:23] LABS: INR 0.92 (0.83-1.09); PROTHROMBIN TIME (PATIENT) 10.6 SEC (9.7-13.0)
[2021-07-04 13:26] LABS: ACTIVATED PTT 24.8 SECONDS (25.2-36.5)
[2021-07-04 13:27] LABS: CHLORIDE 110 mmol/L (98-107); SODIUM 142 mmol/L (136-145)
[2021-07-04 13:29] LABS: CALCIUM 8.3 mg/dL (8.5-10.1)
[2021-07-04 13:30] LABS: ALBUMIN 2.1 g/dl (3.4-5.0); ANION GAP 6 MMOL/L (8-16); BLOOD UREA NITROGEN 8.7 mg/dL (7-18); CO2 26 mmol/L (21-32); GLUCOSE,RANDOM 100 mg/dL (74-106); LIPASE 225 U/L (73-393); MAGNESIUM 2.3 mg/dL (1.8-2.4)
[2021-07-04 13:33] LABS: CREATININE 0.5 mg/dL (0.55-1.3); SGOT/AST 101 U/L (15-37); SGPT/ALT 51 U/L (13-61)
[2021-07-04 13:34] LABS: BILIRUBIN,TOTAL 0.2 mg/dL (0.2-1); TOT PROT 6.9 g/dl (6.4-8.2)
[2021-07-04 13:35] LABS: ALK PHOS 106 U/L (45-117)
[2021-07-04] MEDS ORDERED: ALBUTEROL SO4 2.5/IPRATROPIUM 0.5 INH SOL 3 ML VIAL.NEB. NEB ONE (14:30)
[2021-07-04] MEDS: ALBUTEROL SO4 2.5/IPRATROPIUM 0.5 INH SOL 3 ML VIAL.NEB. NEB SCH (14:37)
[2021-07-04 15:09] LABS: ANISOCYTOSIS 2+; MACROCYTOSIS 1+; PLATELET ESTIMATE NORMAL
[2021-07-04 16:15] VITALS: BP 110/64; PULSE 82
== END 2021-07-04 16:15 | disposition home or self-care (01) ==
LOC: JER 11:15
PROC: 3E033NZ Introduction of Analgesics, Hypnotics, Sedatives into Peripheral Vein, Percutaneous Approach (ICD-10-PCS; principal; 2021-07-04)
PROC: 3E033GC Introduction of Other Therapeutic Substance into Peripheral Vein, Percutaneous Approach (ICD-10-PCS; 2021-07-04)
PROC: 3E0F7GC Introduction of Other Therapeutic Substance into Respiratory Tract, Via Natural or Artificial Opening (ICD-10-PCS; 2021-07-04)
DX: U07.1 COVID-19 (principal); J45.909 Unspecified asthma, uncomplicated
CPT/HCPCS: 36415; 71045-TC-FY; 80053; 82550; 83605; 83690; 83735; 84484; 85025; 85610; 85730; 93005; 93010; 99284-25; J0131; J1100

== ENCOUNTER 2021-08-20 16:12 | Inpatient (IN) | payer OTHER ==
[2021-08-20 11:39] VITALS: BMI 46.5
[2021-08-20] MEDS ORDERED: MAGNESIUM HYDROX 2400MG/30ML ORAL SUSPENSION 30 ML CUP PO PRN (16:29)
[2021-08-20] MEDS ORDERED: MELATONIN 5 MG TABLETS PO PRN (16:29)
[2021-08-20] MEDS ORDERED: MENTHOL/PHENOL 1 EACH UD MM PRN (16:29)
[2021-08-20] MEDS ORDERED: NICOTINE POLACRILEX 2 MG GUM BUC PRN (16:29)
[2021-08-20] MEDS ORDERED: LOPERAMIDE HCL 2 MG CAPSULE PO PRN (16:29)
[2021-08-20] MEDS ORDERED: ONDANSETRON *ODT* 4 MG TABLET SL PRN (16:29)
[2021-08-20] MEDS ORDERED: ACETAMINOPHEN 325 MG TABLET (FP) PO PRN (16:29)
[2021-08-20] MEDS ORDERED: IBUPROFEN 400 MG TABLET (FP) PO PRN (16:29)
[2021-08-20] MEDS ORDERED: MAGNESIUM CITRATE 300 ML BOTTLE PO PRN (16:29)
[2021-08-20] MEDS ORDERED: chlordiazePOXIDE HCL 25 MG CAPSULE PO PRN (16:32)
[2021-08-20] MEDS: chlordiazePOXIDE HCL 25 MG CAPSULE PO SCH ×2 (17:13→22:30)
[2021-08-20] MEDS: THIAMINE HCL 100 MG TABLET (FP) PO SCH (22:30)
[2021-08-20] MEDS: hydrOXYzine PAMOATE 25 MG CAPSULE (FP) PO PRN (22:30)
[2021-08-20] MEDS: METHOCARBAMOL 500 MG TABLET PO PRN (22:30)
[2021-08-21] MEDS: chlordiazePOXIDE HCL 25 MG CAPSULE PO SCH ×4 (05:19→22:20)
[2021-08-21] MEDS: PRENATAL VITAMINS W/ FOLIC ACID TABLET (FP) PO SCH (10:11)
[2021-08-21] MEDS: cloNIDine HCL 0.1 MG TABLET PO PRN ×3 (10:12→22:19)
[2021-08-21] MEDS: METHOCARBAMOL 500 MG TABLET PO PRN ×2 (10:13→22:19)
[2021-08-21] MEDS ORDERED: FLU VACC QS2021-22(6MOS UP)/PF 60 MCG/0.5 ML SYRINGE IM ONE (12:00)
[2021-08-21 12:53] LABS: HEMATOCRIT 25.5 % (32.4-45.2); HEMOGLOBIN 7.7 GM/dL (10.7-15.3); MCH 24.3 pg (25.7-33.7); MCHC 30.1 g/dl (32.0-36.0); MEAN CELL VOLUME 80.5 fl (80-96); MEAN PLT VOLUME 6.6 fl (7.5-11.1); PLATELET COUNT 139 10^3/uL (134-434); RBC 3.17 M/mm3 (3.60-5.2); RDW 29.4 % (11.6-15.6); WHITE BLOOD COUNT 3.1 K/mm3 (4.0-10.0)
[2021-08-21 12:54] LABS: CALCIUM 8.7 mg/dL (8.5-10.1)
[2021-08-21 12:55] LABS: ALBUMIN 2.7 g/dl (3.4-5.0); BLOOD UREA NITROGEN 7.1 mg/dL (7-18)
[2021-08-21 12:58] LABS: CREATININE 0.5 mg/dL (0.55-1.3)
[2021-08-21 13:00] LABS: BILIRUBIN,TOTAL 0.8 mg/dL (0.2-1); TOT PROT 6.8 g/dl (6.4-8.2)
[2021-08-21] MEDS: MAG HYDROX/AL HYDROX/SIMETH 30 ML UNIT-DOSE CUP PO PRN (17:57)
[2021-08-21] MEDS: hydrOXYzine PAMOATE 25 MG CAPSULE (FP) PO PRN (17:59)
[2021-08-21] MEDS ORDERED: SUVOREXANT 10 MG TABLET PO PRN (22:00)
[2021-08-21] MEDS: traZODone HCL 50 MG TABLET (FP) PO PRN (22:19)
[2021-08-21] MEDS: ACETAMINOPHEN 325 MG TABLET (FP) PO PRN (22:20)
[2021-08-21] MEDS: THIAMINE HCL 100 MG TABLET (FP) PO SCH (22:20)
[2021-08-22] MEDS: chlordiazePOXIDE HCL 25 MG CAPSULE PO SCH ×4 (06:00→22:31)
[2021-08-22 10:08] LABS: SARS-CoV-2 NAA Not Detected (Not Detected)
[2021-08-22] MEDS: PRENATAL VITAMINS W/ FOLIC ACID TABLET (FP) PO SCH (10:18)
[2021-08-22] MEDS: ACETAMINOPHEN 325 MG TABLET (FP) PO PRN ×2 (10:19→22:30)
[2021-08-22] MEDS: FERROUS SO4 325 MG TABLET (FP) PO SCH ×2 (13:34→17:21)
[2021-08-22] MEDS: METHOCARBAMOL 500 MG TABLET PO PRN (22:29)
[2021-08-22] MEDS: THIAMINE HCL 100 MG TABLET (FP) PO SCH (22:29)
[2021-08-22] MEDS: DOCUSATE SODIUM 100 MG CAPSULE (FP) PO SCH (22:29)
[2021-08-22] MEDS: BISMUTH SUBSALICYLATE 524 MG/30 ML PO PRN (22:29)
[2021-08-22] MEDS: hydrOXYzine PAMOATE 25 MG CAPSULE (FP) PO PRN (22:30)
[2021-08-22] MEDS: traZODone HCL 50 MG TABLET (FP) PO PRN (22:31)
[2021-08-22] MEDS: ALBUTEROL SO4 HFA INHALER IH PRN (22:33)
[2021-08-22] MEDS: MAG HYDROX/AL HYDROX/SIMETH 30 ML UNIT-DOSE CUP PO PRN (22:49)
[2021-08-23] MEDS ORDERED: chlordiazePOXIDE HCL 10 MG CAPSULE PO PRN
[2021-08-23] MEDS: chlordiazePOXIDE HCL 10 MG CAPSULE PO SCH ×4 (05:55→22:34)
[2021-08-23] MEDS: FERROUS SO4 325 MG TABLET (FP) PO SCH ×3 (07:49→18:17)
[2021-08-23] MEDS: PRENATAL VITAMINS W/ FOLIC ACID TABLET (FP) PO SCH (11:17)
[2021-08-23] MEDS: METHOCARBAMOL 500 MG TABLET PO PRN ×2 (11:18→18:18)
[2021-08-23] MEDS: BISMUTH SUBSALICYLATE 524 MG/30 ML PO PRN ×2 (11:19→15:01)
[2021-08-23] MEDS: POTASSIUM CHLORIDE ORAL LIQUID 20 MEQ/15 ML PO SCH ×2 (11:19→22:34)
[2021-08-23 11:59] LABS: HEMATOCRIT 23.2 % (32.4-45.2); MCH 24.9 pg (25.7-33.7); MCHC 30.1 g/dl (32.0-36.0); MEAN CELL VOLUME 82.9 fl (80-96); PLATELET COUNT 185 10^3/uL (134-434); RDW 29.4 % (11.6-15.6)
[2021-08-23] MEDS: hydrOXYzine PAMOATE 25 MG CAPSULE (FP) PO PRN (14:59)
[2021-08-23] MEDS: ACETAMINOPHEN 325 MG TABLET (FP) PO PRN ×2 (14:59→22:36)
[2021-08-23 19:21] LABS: RETICULOCYTES 3.13 % (0.5-1.5)
[2021-08-23] MEDS: THIAMINE HCL 100 MG TABLET (FP) PO SCH (22:34)
[2021-08-23] MEDS: traZODone HCL 50 MG TABLET (FP) PO PRN (22:34)
[2021-08-23] MEDS: DOCUSATE SODIUM 100 MG CAPSULE (FP) PO SCH (22:34)
[2021-08-24] MEDS: chlordiazePOXIDE HCL 10 MG CAPSULE PO SCH ×2 (05:35→17:53)
[2021-08-24] MEDS: ACETAMINOPHEN 325 MG TABLET (FP) PO PRN ×2 (06:13→22:42)
[2021-08-24] MEDS: FERROUS SO4 325 MG TABLET (FP) PO SCH ×3 (07:23→17:52)
[2021-08-24] MEDS: PRENATAL VITAMINS W/ FOLIC ACID TABLET (FP) PO SCH (10:30)
[2021-08-24] MEDS: POTASSIUM CHLORIDE ORAL LIQUID 20 MEQ/15 ML PO SCH ×2 (10:30→22:40)
[2021-08-24] MEDS: METHOCARBAMOL 500 MG TABLET PO PRN ×2 (10:31→22:41)
[2021-08-24] MEDS: hydrOXYzine PAMOATE 25 MG CAPSULE (FP) PO PRN ×2 (10:31→22:41)
[2021-08-24] MEDS: cloNIDine HCL 0.1 MG TABLET PO PRN (17:54)
[2021-08-24] MEDS: DOCUSATE SODIUM 100 MG CAPSULE (FP) PO SCH (22:40)
[2021-08-24] MEDS: THIAMINE HCL 100 MG TABLET (FP) PO SCH (22:41)
[2021-08-24] MEDS: traZODone HCL 50 MG TABLET (FP) PO PRN (22:41)
[2021-08-24] MEDS: ALBUTEROL SO4 HFA INHALER IH PRN (22:41)
[2021-08-24] MEDS: BISMUTH SUBSALICYLATE 524 MG/30 ML PO PRN (22:45)
[2021-08-25] MEDS ORDERED: chlordiazePOXIDE HCL 10 MG CAPSULE PO ONE (05:00)
[2021-08-25] MEDS: ACETAMINOPHEN 325 MG TABLET (FP) PO PRN (06:25)
[2021-08-25] MEDS: FERROUS SO4 325 MG TABLET (FP) PO SCH ×2 (07:39→12:13)
[2021-08-25 08:43] VITALS: TEMP 96.9
[2021-08-25] MEDS: PRENATAL VITAMINS W/ FOLIC ACID TABLET (FP) PO SCH (10:46)
[2021-08-25] MEDS: hydrOXYzine PAMOATE 25 MG CAPSULE (FP) PO PRN (10:47)
[2021-08-25 11:12] VITALS: BP 117/85; PULSE 85
[2021-08-25 13:07] LABS: SARS-CoV-2 NAA Not Detected (Not Detected)
== END 2021-08-25 12:20 | disposition other institution (70) | DRG 775 ==
LOC: YASAS 16:12 → Y3N 16:57
PROVIDERS: ADMIT Allergy & Immunology; ATTEND Allergy & Immunology
PROC: HZ2ZZZZ Detoxification Services for Substance Abuse Treatment (ICD-10-PCS; principal; 2021-08-20)
DX: F10.230 Alcohol dependence with withdrawal, uncomplicated (principal); F19.24 Other psychoactive substance dependence with psychoactive substance-induced mood disorder; F32.A Depression, unspecified; D50.9 Iron deficiency anemia, unspecified; E87.6 Hypokalemia; E88.09 Other disorders of plasma-protein metabolism, not elsewhere classified; J45.909 Unspecified asthma, uncomplicated; Z86.59 Personal history of other mental and behavioral disorders; Z87.891 Personal history of nicotine dependence
CPT/HCPCS: 36415; 80053; 80307; 81025; 82607; 82728; 82746; 83540; 83550; 85025; 85027; 85045; 86780; 87811; 99282-25; C9803; J0735; U0003; U0005

== ENCOUNTER 2022-02-14 11:45 | Inpatient (IN) | payer OTHER ==
[2022-02-14 13:29] VITALS: BMI 40.3
[2022-02-14] MEDS ORDERED: BISMUTH SUBSALICYLATE 262 MG/15 ML BTL PO PRN (15:01)
[2022-02-14] MEDS ORDERED: ACETAMINOPHEN 325 MG TABLET (FP) PO PRN (15:01)
[2022-02-14] MEDS ORDERED: MAG HYDROX/AL HYDROX/SIMETH 30 ML UNIT-DOSE CUP PO PRN (15:01)
[2022-02-14] MEDS ORDERED: chlordiazePOXIDE HCL 25 MG CAPSULE PO PRN (15:01)
[2022-02-14] MEDS ORDERED: MAGNESIUM CITRATE 300 ML BOTTLE PO PRN (15:01)
[2022-02-14] MEDS ORDERED: BENZOCAINE/MENTHOL (CHLORASEPTIC ) LOZENGE MM PRN (15:01)
[2022-02-14] MEDS ORDERED: LOPERAMIDE HCL 2 MG CAPSULE PO PRN (15:01)
[2022-02-14] MEDS ORDERED: NICOTINE 10 MG CARTRIDGE (INHALER) IH PRN (15:01)
[2022-02-14] MEDS ORDERED: ONDANSETRON *ODT* 4 MG TABLET SL PRN (15:01)
[2022-02-14] MEDS ORDERED: DICYCLOMINE HCL 10 MG CAPSULE PO PRN (15:01)
[2022-02-14] MEDS ORDERED: chlordiazePOXIDE HCL 25 MG CAPSULE ONE ×2 (15:25→19:35)
[2022-02-14] MEDS: chlordiazePOXIDE HCL 25 MG CAPSULE PO SCH ×3 (15:37→22:20)
[2022-02-14] MEDS: IBUPROFEN 400 MG TABLET (FP) PO PRN (15:45)
[2022-02-14] MEDS ORDERED: IBUPROFEN 400 MG TABLET (FP) PO ONE (15:46)
[2022-02-14] MEDS ORDERED: hydrOXYzine PAMOATE 25 MG CAPSULE (FP) PO ONE (19:35)
[2022-02-14] MEDS: hydrOXYzine PAMOATE 25 MG CAPSULE (FP) PO SCH ×2 (19:39→22:20)
[2022-02-14] MEDS: ACETAMINOPHEN 325 MG TABLET (FP) PO PRN (20:09)
[2022-02-14] MEDS ORDERED: ALBUTEROL SO4 HFA INHALER IH ONE (21:47)
[2022-02-14] MEDS ORDERED: MONTELUKAST NA 10 MG TABLET PO SCH (22:00)
[2022-02-14] MEDS: METHOCARBAMOL 500 MG TABLET PO PRN (22:20)
[2022-02-14] MEDS: MELATONIN 5 MG TABLETS PO SCH (22:20)
[2022-02-14] MEDS: THIAMINE HCL 100 MG TABLET (FP) PO SCH (22:21)
[2022-02-15] MEDS: hydrOXYzine PAMOATE 25 MG CAPSULE (FP) PO SCH ×5 (05:36→22:29)
[2022-02-15] MEDS: chlordiazePOXIDE HCL 25 MG CAPSULE PO SCH ×3 (05:36→18:15)
[2022-02-15] MEDS: ALBUTEROL SO4 HFA INHALER IH PRN ×2 (05:39→22:29)
[2022-02-15] MEDS: IBUPROFEN 400 MG TABLET (FP) PO PRN (06:47)
[2022-02-15 10:05] LABS: HEMATOCRIT 27.1 % (32.4-45.2); HEMOGLOBIN 8.6 GM/dL (10.7-15.3); MCH 22.7 pg (25.7-33.7); MCHC 31.6 g/dl (32.0-36.0); MEAN CELL VOLUME 72.1 fl (80-96); MEAN PLT VOLUME 6.5 fl (7.5-11.1); PLATELET COUNT 247 10^3/uL (134-434); RBC 3.77 M/mm3 (3.60-5.2); RDW 19.5 % (11.6-15.6); WHITE BLOOD COUNT 5.2 K/mm3 (4.0-10.0)
[2022-02-15 10:13] LABS: CREATININE 0.6 mg/dL (0.55-1.3)
[2022-02-15 10:14] LABS: ALBUMIN 2.8 g/dl (3.4-5.0); BILIRUBIN,TOTAL 0.9 mg/dL (0.2-1); BLOOD UREA NITROGEN 10.5 mg/dL (7-18); TOT PROT 6.3 g/dl (6.4-8.2)
[2022-02-15 10:15] LABS: CALCIUM 8.1 mg/dL (8.5-10.1)
[2022-02-15] MEDS: PRENATAL VITAMINS W/ FOLIC ACID TABLET (FP) PO SCH (10:25)
[2022-02-15] MEDS: METHOCARBAMOL 500 MG TABLET PO PRN ×2 (10:25→22:31)
[2022-02-15] MEDS: ACETAMINOPHEN 325 MG TABLET (FP) PO PRN ×2 (10:27→22:33)
[2022-02-15] MEDS: IBUPROFEN 600 MG TABLET (FP) PO PRN (18:17)
[2022-02-15] MEDS: MONTELUKAST NA 10 MG TABLET PO SCH (22:29)
[2022-02-15] MEDS: THIAMINE HCL 100 MG TABLET (FP) PO SCH (22:29)
[2022-02-15] MEDS: MELATONIN 5 MG TABLETS PO SCH (22:29)
[2022-02-15] MEDS: traZODone HCL 50 MG TABLET (FP) PO SCH (22:30)
[2022-02-15] MEDS: MAGNESIUM HYDROX 2400MG/30ML ORAL SUSPENSION 30 ML CUP PO PRN (22:33)
[2022-02-15 23:08] VITALS: RESP 18
[2022-02-16] MEDS: chlordiazePOXIDE HCL 25 MG CAPSULE PO SCH ×4 (05:51→22:16)
[2022-02-16] MEDS: hydrOXYzine PAMOATE 25 MG CAPSULE (FP) PO SCH ×5 (05:51→22:13)
[2022-02-16] MEDS: PRENATAL VITAMINS W/ FOLIC ACID TABLET (FP) PO SCH (10:30)
[2022-02-16] MEDS: METHOCARBAMOL 500 MG TABLET PO PRN ×2 (10:30→22:13)
[2022-02-16] MEDS: CITALOPRAM HYDROBROMIDE 20 MG TABLET PO SCH (10:30)
[2022-02-16] MEDS: MAGNESIUM HYDROX 2400MG/30ML ORAL SUSPENSION 30 ML CUP PO PRN (17:48)
[2022-02-16] MEDS: IBUPROFEN 600 MG TABLET (FP) PO PRN (19:58)
[2022-02-16] MEDS: THIAMINE HCL 100 MG TABLET (FP) PO SCH (22:13)
[2022-02-16] MEDS: MONTELUKAST NA 10 MG TABLET PO SCH (22:13)
[2022-02-16] MEDS: MELATONIN 5 MG TABLETS PO SCH (22:13)
[2022-02-16] MEDS: ACETAMINOPHEN 325 MG TABLET (FP) PO PRN (22:13)
[2022-02-16] MEDS: traZODone HCL 50 MG TABLET (FP) PO SCH (22:13)
[2022-02-17] MEDS ORDERED: chlordiazePOXIDE HCL 10 MG CAPSULE PO PRN
[2022-02-17] MEDS: METHOCARBAMOL 500 MG TABLET PO PRN (06:20)
[2022-02-17] MEDS: chlordiazePOXIDE HCL 10 MG CAPSULE PO SCH ×4 (06:20→22:23)
[2022-02-17] MEDS: hydrOXYzine PAMOATE 25 MG CAPSULE (FP) PO SCH ×5 (06:20→22:23)
[2022-02-17] MEDS ORDERED: chlordiazePOXIDE 5 MG CAPSULE ONE (08:57)
[2022-02-17] MEDS: CITALOPRAM HYDROBROMIDE 20 MG TABLET PO SCH (10:45)
[2022-02-17] MEDS: PRENATAL VITAMINS W/ FOLIC ACID TABLET (FP) PO SCH (10:46)
[2022-02-17] MEDS: IBUPROFEN 600 MG TABLET (FP) PO PRN (17:33)
[2022-02-17] MEDS: ALBUTEROL SO4 HFA INHALER IH PRN ×2 (17:34→22:22)
[2022-02-17] MEDS: THIAMINE HCL 100 MG TABLET (FP) PO SCH (22:22)
[2022-02-17] MEDS: traZODone HCL 50 MG TABLET (FP) PO SCH (22:22)
[2022-02-17] MEDS: MONTELUKAST NA 10 MG TABLET PO SCH (22:23)
[2022-02-17] MEDS: ACETAMINOPHEN 325 MG TABLET (FP) PO PRN (22:24)
[2022-02-17] MEDS: MELATONIN 5 MG TABLETS PO SCH (22:24)
[2022-02-18] MEDS: chlordiazePOXIDE HCL 10 MG CAPSULE PO SCH ×2 (06:23→17:49)
[2022-02-18] MEDS: hydrOXYzine PAMOATE 25 MG CAPSULE (FP) PO SCH ×5 (06:23→22:28)
[2022-02-18] MEDS: CITALOPRAM HYDROBROMIDE 20 MG TABLET PO SCH (10:23)
[2022-02-18] MEDS: PRENATAL VITAMINS W/ FOLIC ACID TABLET (FP) PO SCH (10:23)
[2022-02-18] MEDS: IBUPROFEN 600 MG TABLET (FP) PO PRN ×2 (10:24→22:29)
[2022-02-18] MEDS: ALBUTEROL SO4 HFA INHALER IH PRN ×2 (17:48→22:28)
[2022-02-18] MEDS: MONTELUKAST NA 10 MG TABLET PO SCH (22:28)
[2022-02-18] MEDS: MELATONIN 5 MG TABLETS PO SCH (22:28)
[2022-02-18] MEDS: traZODone HCL 50 MG TABLET (FP) PO SCH (22:28)
[2022-02-18] MEDS: THIAMINE HCL 100 MG TABLET (FP) PO SCH (22:28)
[2022-02-18] MEDS: METHOCARBAMOL 500 MG TABLET PO PRN (22:32)
[2022-02-19] MEDS ORDERED: chlordiazePOXIDE HCL 10 MG CAPSULE PO ONE (05:00)
[2022-02-19] MEDS: hydrOXYzine PAMOATE 25 MG CAPSULE (FP) PO SCH ×2 (05:57→10:13)
[2022-02-19] MEDS: PRENATAL VITAMINS W/ FOLIC ACID TABLET (FP) PO SCH (10:13)
[2022-02-19] MEDS: IBUPROFEN 600 MG TABLET (FP) PO PRN (10:13)
[2022-02-19] MEDS: CITALOPRAM HYDROBROMIDE 20 MG TABLET PO SCH (10:13)
[2022-02-19 12:35] VITALS: BP 108/67; PULSE 64; TEMP 96.4
== END 2022-02-19 12:48 | disposition home or self-care (01) | DRG 775 ==
LOC: YASAS 11:45 → Y3N 19:39
PROVIDERS: ADMIT Allergy & Immunology; ATTEND Surgery
PROC: HZ2ZZZZ Detoxification Services for Substance Abuse Treatment (ICD-10-PCS; principal; 2022-02-14)
DX: F10.230 Alcohol dependence with withdrawal, uncomplicated (principal); F17.210 Nicotine dependence, cigarettes, uncomplicated; F19.24 Other psychoactive substance dependence with psychoactive substance-induced mood disorder; F41.9 Anxiety disorder, unspecified; F41.0 Panic disorder [episodic paroxysmal anxiety]; E66.01 Morbid (severe) obesity due to excess calories; Z68.41 Body mass index [BMI] 40.0-44.9, adult; Z87.19 Personal history of other diseases of the digestive system; Z86.59 Personal history of other mental and behavioral disorders
CPT/HCPCS: 36415; 80053; 81025; 85027; 86780; C9803-CS; U0003; U0005

== ENCOUNTER 2022-03-11 14:46 | Inpatient (IN) | payer OTHER ==
[2022-03-11 18:05] VITALS: BMI 39.6
[2022-03-11] MEDS ORDERED: guaiFENesin 200 MG/10 ML 10 ML UNIT-DOSE CUPS PO PRN (19:04)
[2022-03-11] MEDS ORDERED: BENZOCAINE/MENTHOL (CHLORASEPTIC ) LOZENGE MM PRN (19:04)
[2022-03-11] MEDS ORDERED: MAGNESIUM CITRATE 300 ML BOTTLE PO PRN (19:04)
[2022-03-11] MEDS ORDERED: PROCHLORPERAZINE MALEATE 5 MG TABLET PO PRN (19:04)
[2022-03-11] MEDS ORDERED: DICYCLOMINE HCL 10 MG CAPSULE PO PRN (19:04)
[2022-03-11] MEDS ORDERED: LOPERAMIDE HCL 2 MG CAPSULE PO PRN (19:04)
[2022-03-11] MEDS ORDERED: BISMUTH SUBSALICYLATE 524 MG/30 ML PO PRN (19:04)
[2022-03-11] MEDS ORDERED: ACETAMINOPHEN 325 MG TABLET (FP) PO PRN (19:04)
[2022-03-11] MEDS ORDERED: P-EPHED 60MG/TRIPROLIDI 2.5MG TABLET PO PRN (19:04)
[2022-03-11] MEDS ORDERED: MAGNESIUM HYDROX 2400MG/30ML ORAL SUSPENSION 30 ML CUP PO PRN (19:04)
[2022-03-11] MEDS ORDERED: chlordiazePOXIDE HCL 25 MG CAPSULE PO PRN (19:08)
[2022-03-11] MEDS ORDERED: TRIMETHOBENZAMIDE HCL 200MG/2ML INJ IM ONE (19:08)
[2022-03-11] MEDS ORDERED: chlordiazePOXIDE HCL 25 MG CAPSULE PO ONE (19:08)
[2022-03-11] MEDS: hydrOXYzine PAMOATE 25 MG CAPSULE (FP) PO PRN (20:17)
[2022-03-11] MEDS: ACETAMINOPHEN 325 MG TABLET (FP) PO PRN (20:19)
[2022-03-11] MEDS: MELATONIN 5 MG TABLETS PO PRN (22:21)
[2022-03-11] MEDS: chlordiazePOXIDE HCL 25 MG CAPSULE PO SCH (22:21)
[2022-03-11] MEDS: THIAMINE HCL 100 MG TABLET (FP) PO SCH (22:21)
[2022-03-11] MEDS: METHOCARBAMOL 500 MG TABLET PO PRN (22:23)
[2022-03-12] MEDS: chlordiazePOXIDE HCL 25 MG CAPSULE PO SCH ×4 (05:27→22:06)
[2022-03-12] MEDS: PRENATAL VITAMINS W/ FOLIC ACID TABLET (FP) PO SCH (10:21)
[2022-03-12] MEDS: hydrOXYzine PAMOATE 25 MG CAPSULE (FP) PO PRN ×2 (10:21→22:05)
[2022-03-12] MEDS: METHOCARBAMOL 500 MG TABLET PO PRN ×2 (10:24→22:05)
[2022-03-12] MEDS: ACETAMINOPHEN 325 MG TABLET (FP) PO PRN ×2 (10:25→22:07)
[2022-03-12 12:25] LABS: HEMATOCRIT 28.6 % (32.4-45.2); HEMOGLOBIN 8.7 GM/dL (10.7-15.3); MCH 22.7 pg (25.7-33.7); MCHC 30.3 g/dl (32.0-36.0); MEAN CELL VOLUME 74.9 fl (80-96); MEAN PLT VOLUME 7.1 fl (7.5-11.1); PLATELET COUNT 190 10^3/uL (134-434); RBC 3.82 M/mm3 (3.60-5.2); RDW 24.2 % (11.6-15.6); WHITE BLOOD COUNT 5.2 K/mm3 (4.0-10.0)
[2022-03-12 12:58] LABS: IRON SERUM 63 ug/dL (50-175); TOTAL IRON BINDING CAPACITY 412 ug/dL (250-450)
[2022-03-12] MEDS ORDERED: ALBUTEROL SO4 HFA INHALER IH ONE (13:14)
[2022-03-12] MEDS: ALBUTEROL SO4 HFA INHALER IH PRN ×2 (17:41→22:04)
[2022-03-12] MEDS ORDERED: traZODone HCL 50 MG TABLET (FP) PO SCH (22:00)
[2022-03-12] MEDS: traZODone HCL 50 MG TABLET (FP) PO SCH (22:06)
[2022-03-12] MEDS: THIAMINE HCL 100 MG TABLET (FP) PO SCH (22:06)
[2022-03-12] MEDS: MELATONIN 5 MG TABLETS PO PRN (22:08)
[2022-03-12] MEDS: MAG HYDROX/AL HYDROX/SIMETH 30 ML UNIT-DOSE CUP PO PRN (22:08)
[2022-03-13] MEDS: chlordiazePOXIDE HCL 25 MG CAPSULE PO SCH ×4 (05:23→22:08)
[2022-03-13] MEDS: hydrOXYzine PAMOATE 25 MG CAPSULE (FP) PO PRN ×4 (05:25→22:07)
[2022-03-13] MEDS: MONTELUKAST NA 10 MG TABLET PO SCH (10:36)
[2022-03-13] MEDS: PRENATAL VITAMINS W/ FOLIC ACID TABLET (FP) PO SCH (10:36)
[2022-03-13] MEDS: METHOCARBAMOL 500 MG TABLET PO PRN ×2 (10:37→22:07)
[2022-03-13] MEDS: CITALOPRAM HYDROBROMIDE 20 MG TABLET PO SCH (11:16)
[2022-03-13] MEDS: MAG HYDROX/AL HYDROX/SIMETH 30 ML UNIT-DOSE CUP PO PRN (13:24)
[2022-03-13] MEDS: ASCORBIC ACID 500 MG TABLET (FP) PO SCH (14:25)
[2022-03-13] MEDS: ALBUTEROL SO4 HFA INHALER IH PRN ×2 (17:47→22:08)
[2022-03-13] MEDS: FERROUS SO4 325 MG TABLET (FP) PO SCH (17:48)
[2022-03-13] MEDS: traZODone HCL 50 MG TABLET (FP) PO SCH (22:07)
[2022-03-13] MEDS: MELATONIN 5 MG TABLETS PO PRN (22:07)
[2022-03-13] MEDS: THIAMINE HCL 100 MG TABLET (FP) PO SCH (22:07)
[2022-03-13] MEDS: ACETAMINOPHEN 325 MG TABLET (FP) PO PRN (22:09)
[2022-03-14] MEDS ORDERED: chlordiazePOXIDE HCL 10 MG CAPSULE PO PRN
[2022-03-14] MEDS: chlordiazePOXIDE HCL 10 MG CAPSULE PO SCH ×4 (05:17→22:12)
[2022-03-14] MEDS: FERROUS SO4 325 MG TABLET (FP) PO SCH ×2 (07:58→17:39)
[2022-03-14] MEDS: CITALOPRAM HYDROBROMIDE 20 MG TABLET PO SCH (10:09)
[2022-03-14] MEDS: ASCORBIC ACID 500 MG TABLET (FP) PO SCH (10:09)
[2022-03-14] MEDS: PRENATAL VITAMINS W/ FOLIC ACID TABLET (FP) PO SCH (10:09)
[2022-03-14] MEDS: MONTELUKAST NA 10 MG TABLET PO SCH (10:09)
[2022-03-14] MEDS: ALBUTEROL SO4 HFA INHALER IH PRN (10:11)
[2022-03-14 13:30] LABS: EPI CELLS 14 /uL (0-25.1); HYALINE CASTS 0 /uL (0-3.1); URINE APPEARANCE CLEAR; URINE BACTERIA 8890 /uL (0-1359); URINE BILIRUBIN NEGATIVE (NEGATIVE); URINE COLOR YELLOW; URINE GLUCOSE (UA) NEGATIVE (NEGATIVE); URINE KETONE NEGATIVE (NEGATIVE); URINE LEUK ESTERASE 1+ (NEGATIVE); URINE NITRITE NEGATIVE (NEGATIVE); URINE PROTEIN NEGATIVE (NEGATIVE); URINE RBC 5 /uL (0-23.9); URINE UROBILINOGEN 0.2 mg/dL (0.2-1.0); URINE WBC 13 /uL (0-25.8)
[2022-03-14] MEDS: ACETAMINOPHEN 325 MG TABLET (FP) PO PRN (17:41)
[2022-03-14] MEDS: hydrOXYzine PAMOATE 25 MG CAPSULE (FP) PO PRN ×2 (17:41→22:14)
[2022-03-14] MEDS: MAG HYDROX/AL HYDROX/SIMETH 30 ML UNIT-DOSE CUP PO PRN (17:52)
[2022-03-14] MEDS: traZODone HCL 50 MG TABLET (FP) PO SCH (22:12)
[2022-03-14] MEDS: THIAMINE HCL 100 MG TABLET (FP) PO SCH (22:12)
[2022-03-14] MEDS: MELATONIN 5 MG TABLETS PO PRN (22:12)
[2022-03-14] MEDS: METHOCARBAMOL 500 MG TABLET PO PRN (22:13)
[2022-03-15] MEDS: chlordiazePOXIDE HCL 10 MG CAPSULE PO SCH ×2 (05:49→17:09)
[2022-03-15] MEDS: FERROUS SO4 325 MG TABLET (FP) PO SCH ×2 (08:44→17:09)
[2022-03-15] MEDS: MONTELUKAST NA 10 MG TABLET PO SCH (10:06)
[2022-03-15] MEDS: ASCORBIC ACID 500 MG TABLET (FP) PO SCH (10:06)
[2022-03-15] MEDS: hydrOXYzine PAMOATE 25 MG CAPSULE (FP) PO PRN ×3 (10:06→22:07)
[2022-03-15] MEDS: PRENATAL VITAMINS W/ FOLIC ACID TABLET (FP) PO SCH (10:06)
[2022-03-15] MEDS: CITALOPRAM HYDROBROMIDE 20 MG TABLET PO SCH (10:06)
[2022-03-15] MEDS: METHOCARBAMOL 500 MG TABLET PO PRN ×2 (10:06→17:09)
[2022-03-15] MEDS: SULFAMETHOXAZOLE/TRIMETHOPRIM 800MG/160MG D.S. TABLET PO SCH ×2 (14:41→22:06)
[2022-03-15 21:42] VITALS: RESP 18
[2022-03-15] MEDS: THIAMINE HCL 100 MG TABLET (FP) PO SCH (22:06)
[2022-03-15] MEDS: traZODone HCL 50 MG TABLET (FP) PO SCH (22:07)
[2022-03-15] MEDS: ACETAMINOPHEN 325 MG TABLET (FP) PO PRN (22:08)
[2022-03-16] MEDS ORDERED: chlordiazePOXIDE HCL 10 MG CAPSULE PO ONE (05:00)
[2022-03-16 06:26] VITALS: PULSE 72
[2022-03-16] MEDS: FERROUS SO4 325 MG TABLET (FP) PO SCH (08:25)
[2022-03-16 09:20] VITALS: BP 100/63; TEMP 97.7
[2022-03-16] MEDS: MONTELUKAST NA 10 MG TABLET PO SCH (09:29)
[2022-03-16] MEDS: ASCORBIC ACID 500 MG TABLET (FP) PO SCH (09:29)
[2022-03-16] MEDS: CITALOPRAM HYDROBROMIDE 20 MG TABLET PO SCH (09:29)
[2022-03-16] MEDS: hydrOXYzine PAMOATE 25 MG CAPSULE (FP) PO PRN (09:29)
[2022-03-16] MEDS: PRENATAL VITAMINS W/ FOLIC ACID TABLET (FP) PO SCH (09:30)
[2022-03-16] MEDS: SULFAMETHOXAZOLE/TRIMETHOPRIM 800MG/160MG D.S. TABLET PO SCH (09:30)
[2022-03-16] MEDS: ALBUTEROL SO4 HFA INHALER IH PRN (10:20)
== END 2022-03-16 12:36 | disposition home or self-care (01) | DRG 773 ==
LOC: YASAS 14:46 → Y3N 19:35
PROVIDERS: ADMIT Allergy & Immunology; ATTEND Surgery
PROC: HZ2ZZZZ Detoxification Services for Substance Abuse Treatment (ICD-10-PCS; principal; 2022-03-11)
DX: F11.23 Opioid dependence with withdrawal (principal); F10.230 Alcohol dependence with withdrawal, uncomplicated; F14.20 Cocaine dependence, uncomplicated; F17.210 Nicotine dependence, cigarettes, uncomplicated; F19.282 Other psychoactive substance dependence with psychoactive substance-induced sleep disorder; F19.24 Other psychoactive substance dependence with psychoactive substance-induced mood disorder; D64.9 Anemia, unspecified; E88.09 Other disorders of plasma-protein metabolism, not elsewhere classified; E87.6 Hypokalemia; N39.0 Urinary tract infection, site not specified; E66.9 Obesity, unspecified; Z68.39 Body mass index [BMI] 39.0-39.9, adult; Z86.59 Personal history of other mental and behavioral disorders; Z98.84 Bariatric surgery status; Z91.19 Patient's noncompliance with other medical treatment and regimen
CPT/HCPCS: 36415; 81003; 81025; 83540; 83550; 85027; C9803-CS; U0003; U0005